=== PATIENT | female | born 1985 | race Hispanic/Latino ===

== ENCOUNTER 2019-11-05 10:27 | Emergency (ER) | payer BC ==
--- OUTSIDE RECORDS SUMMARY | 2019-11-05 10:29 | XMS REPORT ---
:1985 [facility] Address [address] [place] [address] Dr. Leblanc [address] [place] [id number] Care Team Providers Name Role Phone Unavailable Unavailable Unavailable Problems This patient has no known problems. Allergies, Adverse Reactions, Alerts This patient has no known allergies or adverse reactions. Medications This patient has no known medications.
[2019-11-05] MEDS ORDERED: MORPHINE 2 MG/ML SYR ONE (11:25)
[2019-11-05] MEDS ORDERED: NA CHLORIDE 0.9% 1,000 ML ONE (11:25)
[2019-11-05] MEDS ORDERED: ONDANSETRON 4 MG/2 ML VIAL ONE (11:25)
[2019-11-05] MEDS ORDERED: FAMOTIDINE 20 MG/2 ML VIAL IV ONE (11:25)
[2019-11-05 11:49] LABS: Absolute Lymphocytes (CBC) 1.6 K/uL (0.7-4.9); Basophils % 0.4 % (0-1.3); Hematocrit 38.8 % (36.0-45.0); Lymphocytes % 30.9 % (15.3-44.8); MPV 9.5 fL (7.6-11.3); RBC Red Blood Cell Count 4.78 M/uL (3.86-4.86)
[2019-11-05 11:51] LABS: Protime INR 1.03
[2019-11-05 12:07] LABS: ALT/SGPT 29 U/L (12-78); AST/SGOT 14 U/L (15-37); Albumin 3.4 g/dL (3.4-5.0); Alkaline Phosphatase 114 U/L (45-117); BUN Blood Urea Nitrogen 14 mg/dL (7-18); Bicarbonate 27 mmol/L (21-32); Bilirubin Direct 0.2 mg/dL (0-0.2); Bilirubin Total 0.5 mg/dL (0.2-1.0); Glucose Level 92 mg/dL (74-106); Lipase 65 U/L (73-393); NT PRO-BNP 25 pg/mL (<125); Potassium 4.2 mmol/L (3.5-5.1); Sodium Level 140 mmol/L (136-145); Troponin (Emerg Dept Use Only) < 0.02 ng/mL (0.0-0.045)
--- NOTE | 2019-11-05 12:08 | RAD REPORT ---
EXAM DESCRIPTION: RAD - Chest Single View - 11/05/2019 12:03 pm CLINICAL HISTORY: Cough;Chest pain Chest pain. COMPARISON: No comparisons FINDINGS: Portable technique limits examination quality. The lungs are grossly clear. The heart is upper limit of normal in size. No displaced fractures. IMPRESSION: No acute intrathoracic process suspected.
--- NOTE | 2019-11-05 12:25 | RAD REPORT ---
EXAM DESCRIPTION: US - Extrem Venous W Compress Marc - 11/05/2019 12:20 pm CLINICAL HISTORY: PAIN Bilateral leg edema and swelling. COMPARISON: <Comparisons> TECHNIQUE: Real-time sonographic interrogation of the left and right lower extremity deep venous sys tems was performed. FINDINGS: Normal compressibility, flow augmentation, phasic flow and spontaneous flow is identified in both the left and right lower extremity deep venous systems. IMPRESSION: No sonographic evidence of left or right lower extremity deep venous thrombosis.
[2019-11-05 12:39] LABS: Urine Blood NEGATIVE (NEG); Urine Glucose NEGATIVE (NEG); Urine Protein NEGATIVE (NEG); Urine pH 8.5 (5.0-7.0)
[2019-11-05] MEDS ORDERED: ASPIRIN 81 MG CHEWABLE TABLET ONE (12:49)
--- NOTE | 2019-11-05 12:53 | RAD REPORT ---
EXAM DESCRIPTION: CT - Angio Aorta For Dissection - 11/05/2019 12:44 pm CLINICAL HISTORY: Chest pain radiating to the back. Chest pain;Pain;PE COMPARISON: <Comparisons> TECHNIQUE: CT angiography of the aorta was performed with MIPs. All CT scans are performed using dose optimization technique as appropriate and may include automated exposure control or mA/KV adjustment according to patient size. FINDINGS: A left aortic arch is present with normal branching pattern of the great vessels.No acute aortic finding is seen such as aneurysm, penetrating ulcer or dissection. The celiac axis, SMA, MARIAM and renal arteries are widely patent. No evidence of pulmonary embolism. The lungs are clear. The liver demonstrates no focal mass or biliary dilatation.The spleen, pancreas, adrenal glands and k idneys are within normal limits for arterial phase imaging. No bowel obstruction, free fluid or abscess.No pathologic enlarged lymphadenopathy identified. No fracture or worrisome bone lesion seen. IUD noted in the uterus. IMPRESSION: No acute aortic finding is demonstrated.
--- NOTE | 2019-11-05 13:02 | EDPHYS ---
Physician Documentation [facility] Name: Elizabeth Severino Age: 33 yrs Sex: Female : 1985 Arrival Date: 11/05/2019 Time: 10:27 Bed 7 Private MD: NICO Physician Saravanan Doran HPI: 11/05 11:15 This 33 yrs old Female presents to ER via Ambulatory with complaints of Chest luisa Pain. 11:15 The patient or guardian reports chest pain that is located primarily in the substernal luisa area, anterior chest wall, bilaterally. The pain radiates to back. Associated signs and symptoms: Pertinent positives: shortness of breath. The chest pain is described as a pressure, sharp. Duration: The patient or guardian reports a single episode, that is still ongoing. Modifying factors: The symptoms are alleviated by nothing. the symptoms are aggravated by nothing. Severity of pain: At its worst the pain was moderate. The patient has not experienced similar symptoms in the past. 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 - Social history:: Smoking status: Patient/guardian denies using tobacco. - Ebola Screening: : No symptoms or risks identified at this time. - Family history:: not pertinent. ROS: 11:15 Constitutional: Negative for fever, chills, and weight loss, Eyes: Negative for injury, luisa pain, redness, and discharge, ENT: Negative for injury, pain, and discharge, Neck: Negative for injury, pain, and swelling, Abdomen/GI: Negative for abdominal pain, nausea, vomiting, diarrhea, and constipation, Back: Negative for injury and pain, : Negative for injury, bleeding, discharge, and swelling, Skin: Negative for injury, rash, and discoloration, Neuro: Negative for headache, weakness, numbness, tingling, and seizure, Psych: Negative for depression, anxiety, suicide ideation, homicidal ideation, and hallucinations, Allergy/Immunology: Negative for hives, rash, and allergies, Endocrine: Negative for neck swelling, polydipsia, polyuria, polyphagia, and marked weight changes, Hematologic/Lymphatic: Negative for swollen nodes, abnormal bleeding, and unusual bruising. 11:15 Cardiovascular: Positive for chest pain. 11:15 Respiratory: Positive for cough, shortness of breath. 11:15 Back: Positive for pain at rest. Exam: 11:15 Constitutional: This is a well developed, well nourished patient who is awake, alert, luisa and in no acute distress. Head/Face: Normocephalic, atraumatic. Eyes: Pupils equal round and reactive to light, extra-ocular motions intact. Lids and lashes normal. Conjunctiva and sclera are non-icteric and not injected. Cornea within normal limits. Periorbital areas with no swelling, redness, or edema. ENT: Nares patent. No nasal discharge, no septal abnormalities noted. Tympanic membranes are normal and external auditory canals are clear. Oropharynx with no redness, swelling, or masses, exudates, or evidence of obstruction, uvula midline. Mucous membranes moist. Neck: Trachea midline, no thyromegaly or masses palpated, and no cervical lymphadenopathy. Supple, full range of motion without nuchal rigidity, or vertebral point tenderness. No Meningismus. Chest/axilla: Normal chest wall appearance and motion. Nontender with no deformity. No lesions are appreciated. Cardiovascular: Regular rate and rhythm with a normal S1 and S2. No gallops, murmurs, or rubs. Normal PMI, no JVD. No pulse deficits. Respiratory: Lungs have equal breath sounds bilaterally, clear to auscultation and percussion. No rales, rhonchi or wheezes noted. No increased work of breathing, no retractions or nasal flaring. Abdomen/GI: Soft, non-tender, with normal bowel sounds. No distension or tympany. No guarding or rebound. No evidence of tenderness throughout. Back: No spinal tenderness. No costovertebral tenderness. Full range of motion. Skin: Warm, dry with normal turgor. Normal color with no rashes, no lesions, and no evidence of cellulitis. MS/ Extremity: Pulses equal, no cyanosis. Neurovascular intact. Full, normal range of motion. Neuro: Awake and alert, GCS 15, oriented to person, place, time, and situation. Cranial nerves II-XII grossly intact. Motor strength 5/5 in all extremities. Sensory grossly intact. Cerebellar exam normal. Normal gait. Psych: Awake, alert, with orientation to person, place and time. Behavior, mood, and affect are within normal limits. 11:15 Musculoskeletal/extremity: DVT Exam: No signs of deep vein thrombosis. no pain, no swelling, no tenderness, negative Homans' sign noted on exam, no appreciated bluish discoloration, no erythema, no increased warmth. 11:46 Abdomen/GI: Inspection: abdomen appears normal, Bowel sounds: normal, Palpation: [facility] abdomen is soft and non-tender, Liver: no appreciated palpable abnormalities, Hernia: not appreciated. Vital Signs: 10:36 BP 127 / 83; Pulse 92; Resp 18; Pulse Ox 99% on R/A; Weight 99.79 kg; Height 5 ft. 2 sv in. (157.48 cm); Pain 7/10; 11:38 BP 110 / 66; Pulse 65; Resp 10; Pulse Ox 100% ; bp 12:53 BP 122 / 55; Pulse 73; Resp 18; Pulse Ox 100% ; bp 13:57 BP 109 / 90; Pulse 97; Resp 24; Temp 98; Pulse Ox 99% ; bp 10:36 Body Mass Index 40.24 (99.79 kg, 157.48 cm) sv MDM: 10:30 Patient medically screened. [facility] 11:17 Data reviewed: vital signs, nurses notes, lab test result(s), EKG, radiologic studies, [facility] CT scan, plain films. 11/05 11:15 Order name: Basic Metabolic Panel; Complete Time: 12:27 [facility] 11/05 11:15 Order name: CBC with Diff; Complete Time: 12:27 [facility] 11/05 11:15 Order name: LFT's; Complete Time: 12:27 [facility] 11/05 11:15 Order name: Magnesium; Complete Time: 12:27 [facility] 11/05 11:15 Order name: NT PRO-BNP; Complete Time: 12:27 [facility] 11/05 11:15 Order name: PT-INR; Complete Time: 12:27 [facility] 11/05 11:15 Order name: Troponin (emerg Dept Use Only); Complete Time: 12:27 [facility] 11/05 11:15 Order name: XRAY Chest (1 view); Complete Time: 12:27 [facility] 11/05 11:15 Order name: Lipase; Complete Time: 12:27 [facility] 11/05 11:15 Order name: US Extremity Venous W Compression Marc; Complete Time: 12:27 [facility] 11/05 11:15 Order name: CT Aorta for Dissection; Complete Time: 13:01 [facility] 11/05 12:34 Order name: Urine Dipstick--Ancillary (enter results); Complete Time: 12:54 ms 11/05 12:34 Order name: Urine --Ancillary (enter results); Complete Time: 12:54 ms 11/05 11:15 Order name: EKG; Complete Time: 11:16 [facility] 11/05 11:15 Order name: Cardiac monitoring; Complete Time: 11:17 [facility] 11/05 11:15 Order name: EKG - Nurse/Tech; Complete Time: 11:17 [facility] 11/05 11:15 Order name: IV Saline Lock; Complete Time: 11:37 [facility] 11/05 11:15 Order name: Labs collected and sent; Complete Time: 11:37 [facility] 11/05 11:15 Order name: O2 Per Protocol; Complete Time: 11:17 [facility] 11/05 11:15 Order name: O2 Sat Monitoring; Complete Time: 11:17 [facility] 11/05 11:15 Order name: Urine Dipstick-Ancillary (obtain specimen); Complete Time: 12:31 [facility] 11/05 11:15 Order name: Urine Test (obtain specimen); Complete Time: 12:32 [facility] Administered Medications: 11:30 Drug: NS 0.9% 1000 ml Route: IV; Rate: 1 bolus; Site: right forearm; bp 13:58 Follow up: IV Status: Completed infusion; IV Intake: 1000ml bp 11:30 Drug: Pepcid 20 mg Route: IVP; Site: right forearm; bp 12:32 Follow up: Response: Nausea is decreased bp 11:30 Drug: morphine 2 mg Route: IVP; Site: right forearm; bp 12:32 Follow up: Response: Pain is decreased bp 11:30 Drug: Zofran 4 mg Route: IVP; Site: right forearm; bp 12:32 Follow up: Response: Nausea is decreased bp 12:54 Drug: Aspirin Chewable Tablet 162 mg Route: PO; bp 12:54 Follow up: Response: No adverse reaction bp Disposition: 11/05/19 13:01 Discharged to Home. Impression: Chest pain, unspecified. - Condition is Stable. - Discharge Instructions: Nonspecific Chest Pain, Nonspecific Chest Pain, [id number], Aspirin and Your Heart. - Prescriptions for Pepcid 20 mg Oral Tablet - take 1 tablet by ORAL route every 12 hours for 10 days; 20 tablet. - Medication Reconciliation Form, Thank You Letter, Antibiotic Education, Prescription Opioid Use form. - Follow up: Private Physician; When: 2 - 3 days; Reason: Recheck today's complaints, Continuance of care, Re-evaluation by your physician. - Problem is new. - Symptoms have improved. Signatures: Dispatcher [employer] Sara Vazquez, MARY RN Saravanan Bhakta MD MD cha Peltier, Brian, RN RN bp Corrections: (The following items were deleted from the chart) 14:02 13:01 11/05/2019 13:01 Discharged to Home. Impression: Chest pain, unspecified. bp Condition is Stable. Discharge Instructions: Nonspecific Chest Pain, Nonspecific Chest Pain, [id number], Aspirin and Your Heart. Prescriptions for Pepcid 20 mg Oral Tablet - take 1 tablet by ORAL route every 12 hours for 10 days; 20 tablet. and Forms are Medication Reconciliation Form, Thank You Letter, Antibiotic Education, Prescription Opioid Use. Follow up: Private Physician; When: 2 - 3 days; Reason: Recheck today's complaints, Continuance of care, Re-evaluation by your physician. Problem is new. Symptoms have improved. luisa
--- NOTE | 2019-11-05 13:02 | ER ---
Nurse's Notes [facility] Name: Elizabeth Severino Age: 33 yrs Sex: Female : 1985 Arrival Date: 11/05/2019 Time: 10:27 Bed 7 Private MD: Diagnosis: Chest pain, unspecified Presentation: 11/05 10:29 Presenting complaint: Patient states: midsternal chest pressure/tightness that radiates sv to between shoulder blades started this morning, also reports she had some left posterior knee pain a couple of days ago but has since subsided. Denies SOB/n/v. Transition of care: patient was not received from another setting of care. Onset of symptoms was November 05, 2019. Risk Assessment: Do you want to hurt yourself or someone else? Patient reports no desire to harm self or others. Care prior to arrival: None. 10:29 Method Of Arrival: Ambulatory sv 10:29 Acuity: ARSALAN 3 sv 13:58 Initial Sepsis Screen: Does the patient meet any 2 criteria? No. Patient's initial bp sepsis screen is negative. Does the patient have a suspected source of infection? No. Patient's initial sepsis screen is negative. Triage Assessment: 10:30 General: Appears in no apparent distress. comfortable, Behavior is cooperative, bp appropriate for age, anxious. Pain: Complains of pain in chest. EENT: No deficits noted. Neuro: No deficits noted. Cardiovascular: Rhythm is sinus rhythm. Respiratory: No deficits noted. GI: No signs and/or symptoms were reported involving the gastrointestinal system. : No signs and/or symptoms were reported regarding the genitourinary system. Derm: No deficits noted. Musculoskeletal: No deficits noted. 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 - Social history:: Smoking status: Patient/guardian denies using tobacco. - Ebola Screening: : No symptoms or risks identified at this time. - Family history:: not pertinent. Screenin:51 Abuse screen: Denies threats or abuse. Denies injuries from another. Nutritional bp screening: No deficits noted. Tuberculosis screening: No symptoms or risk factors identified. Fall Risk None identified. Assessment: 10:30 General: SEE TRIAGE NOTE. bp 11:38 Reassessment: IVF INFUSING, RADIOLOGY STUDIES PENDING. bp 12:53 Reassessment: PT RETURNED FROM RADIOLOGY. bp 13:57 Reassessment: PT D/C HOME AMBULATORY WITH FAMILY, DX WITH NONSPECIFIC CHEST PAIN. bp Vital Signs: 10:36 BP 127 / 83; Pulse 92; Resp 18; Pulse Ox 99% on R/A; Weight 99.79 kg; Height 5 ft. 2 sv in. (157.48 cm); Pain 7/10; 11:38 BP 110 / 66; Pulse 65; Resp 10; Pulse Ox 100% ; bp 12:53 BP 122 / 55; Pulse 73; Resp 18; Pulse Ox 100% ; bp 13:57 BP 109 / 90; Pulse 97; Resp 24; Temp 98; Pulse Ox 99% ; bp 10:36 Body Mass Index 40.24 (99.79 kg, 157.48 cm) sv ED Course: 10:27 Patient arrived in ED. as 10:29 Arm band placed on Patient placed in an exam room, on a stretcher. sv 10:30 Saravanan Doran MD is Attending Physician. luisa 10:30 Gray Ulloa, MARY is Primary Nurse. bp 10:35 Triage completed. sv 10:51 Patient has correct armband on for positive identification. Bed in low position. Call bp light in reach. Side rails up X2. campus monitor on. Pulse ox on. NIBP on. 11:20 Radiology exam delayed due to lab results not completed at this time. (BUN/Creatinine) mw3 test not completed at this time. 11:21 EKG done, by ED staff, reviewed by Saravanan Doran MD. em1 11:30 Inserted saline lock: 20 gauge in right forearm, using aseptic technique. Blood bp collected. Patient maintains SpO2 saturation greater than 95% on room air. 11:47 Radiology exam delayed due to test not completed at this time. mw3 12:03 XRAY Chest (1 view) In Process Unspecified. EDMS 12:21 US Extremity Venous W Compression Marc In Process Unspecified. EDMS 12:41 CT completed. Patient tolerated procedure well. Patient moved back from CT. bq 12:44 CT Aorta for Dissection In Process Unspecified. EDMS 13:58 No provider procedures requiring assistance completed. IV discontinued, intact, bp bleeding controlled, No redness/swelling at site. Pressure dressing applied. Administered Medications: 11:30 Drug: NS 0.9% 1000 ml Route: IV; Rate: 1 bolus; Site: right forearm; bp 13:58 Follow up: IV Status: Completed infusion; IV Intake: 1000ml bp 11:30 Drug: Pepcid 20 mg Route: IVP; Site: right forearm; bp 12:32 Follow up: Response: Nausea is decreased bp 11:30 Drug: morphine 2 mg Route: IVP; Site: right forearm; bp 12:32 Follow up: Response: Pain is decreased bp 11:30 Drug: Zofran 4 mg Route: IVP; Site: right forearm; bp 12:32 Follow up: Response: Nausea is decreased bp 12:54 Drug: Aspirin Chewable Tablet 162 mg Route: PO; bp 12:54 Follow up: Response: No adverse reaction bp Intake: 13:58 IV: 1000ml; Total: 1000ml. bp Outcome: 13:01 Discharge ordered by . luisa 13:58 Discharged to home ambulatory, with family. bp 13:58 Condition: stable 13:58 Discharge instructions given to patient, Instructed on discharge instructions, follow up and referral plans. medication usage, Demonstrated understanding of instructions, follow-up care, medications, Prescriptions given X 1. 14:02 Patient left the ED. bp Signatures: Dispatcher [employer] Sara Vazquez, Saravanan Gomez RN, MD MD cha Quilty, Betty bq Martinez, Luis Fernando Hardy em1 Gray Ulloa RN RN Kristen Lucia mw3
[2019-11-05 14:11] VITALS: BP 109/90; TEMP 98; O2SAT 99
--- NOTE | 2019-11-05 18:47 | EKG ---
Test Date: 2019-11-05 Test Time: 11:19:21 Medical Staff Coordinator: KAYLA MEASUREMENT RESULTS: Intervals: Rate: 67 WI: 166 QRSD: 84 QT: 422 QTc: 445 [place]: P: 54 WI: 166 QRS: 64 T: 47 INTERPRETIVE STATEMENTS: Normal sinus rhythm with sinus arrhythmia Normal ECG No previous ECG available for comparison Electronically Signed On 11-05-19 18:47:06 FISHING ROD MARKER by Deshawn Medeiros
== END 2019-11-05 14:02 | disposition home or self-care (01) ==
LOC: ER 10:27
DX: R07.9 Chest pain, unspecified (principal); Z88.0 Allergy status to penicillin
CPT/HCPCS: 96361; 93005; 85025; 80048; 36415; 83735; 81025; 85610; 80076; 81003; 84484; 83690; 83880; 71275; 74175; 71045; 93970; 96375; 96374; 99285; Q9967; J2270; J7030; J2405

== ENCOUNTER 2020-03-04 20:28 | Emergency (ER) | payer BC ==
--- OUTSIDE RECORDS SUMMARY | 2020-03-04 20:30 | XMS REPORT ---
:1985 Author Organization [facility] t Address [address] [place] [address] Dr. Leblanc [address] [place] [id number] Care Team Providers Name Role Phone Unavailable Unavailable Unavailable Problems This patient has no known problems. Allergies, Adverse Reactions, Alerts This patient has no known allergies or adverse reactions. Medications This patient has no known medications.
[2020-03-04 20:58] LABS: Urine Blood 1+ (NEG); Urine Glucose NEGATIVE (NEG); Urine Protein NEGATIVE (NEG)
[2020-03-04 21:04] LABS: Absolute Lymphocytes (CBC) 2.6 K/uL (0.7-4.9); Basophils % 0.4 % (0-1.3); Lymphocytes % 38.1 % (15.3-44.8); MPV 9.4 fL (7.6-11.3); RBC Red Blood Cell Count 4.55 M/uL (3.86-4.86)
[2020-03-04] MEDS ORDERED: NA CHLORIDE 0.9% 1,000 ML ONE (21:04)
[2020-03-04] MEDS ORDERED: MORPHINE 4 MG/ML SYR ONE (21:04)
[2020-03-04] MEDS ORDERED: ONDANSETRON 4 MG/2 ML VIAL ONE (21:04)
[2020-03-04 21:19] LABS: ALT/SGPT 22 U/L (12-78); AST/SGOT 13 U/L (15-37); Albumin 3.5 g/dL (3.4-5.0); BUN Blood Urea Nitrogen 18 mg/dL (7-18); Bicarbonate 26 mmol/L (21-32); Bilirubin Direct < 0.1 mg/dL (0-0.2); Bilirubin Total 0.1 mg/dL (0.2-1.0); Glucose Level 100 mg/dL (74-106); Lipase 119 U/L (73-393); Potassium 3.8 mmol/L (3.5-5.1); Protein, Total 7.2 g/dL (6.4-8.2); Sodium Level 141 mmol/L (136-145)
[2020-03-04 21:20] LABS: Alkaline Phosphatase 111 U/L (45-117)
--- NOTE | 2020-03-04 21:59 | RAD REPORT ---
EXAM DESCRIPTION: CT - Abdomen Pelvis W Contrast - 03/04/2020 9:48 pm CLINICAL HISTORY: Abdominal pain COMPARISON: 2019 TECHNIQUE: Computed axial tomography of the abdomen pelvis was obtained. 100 cc Isovue-300 was admin istered intravenously. Oral contrast was not requested which limits evaluation of bowel. All CT scans are performed using dose optimization technique as appropriate and may include automated exposure control or mA/KV adjustment according to patient size. FINDINGS: The liver, spleen, pancreas, adrenal and kidneys appear unremarkable. There is no evidence of diverticulitis. Normal appendix IUD within the uterus The gallbladder wall appears borderline thickened IMPRESSION: Borderline gallbladder wall thickening. If clinically indicated further evaluation with ultrasound could be obtained
--- NOTE | 2020-03-04 22:20 | EDPHYS ---
Physician Documentation [facility] Name: Elizabeth Severino Age: 34 yrs Sex: Female : 1985 Arrival Date: 03/04/2020 Time: 20:30 Bed 24 Private MD: ED Physician Anurag Brower HPI: 03/04 20:54 This 34 yrs old Female presents to ER via Ambulatory with complaints of pkl Abdominal Pain. 20:54 The patient presents with abdominal pain in the right upper quadrant. Onset: The pkl symptoms/episode began/occurred yesterday. The symptoms do not radiate. Associated signs and symptoms: Pertinent positives: nausea. 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 - Social history:: Smoking status: Patient denies any tobacco usage or history of. ROS: 20:54 Eyes: Negative for injury, pain, redness, and discharge, ENT: Negative for injury, pkl pain, and discharge, Neck: Negative for injury, pain, and swelling, Cardiovascular: Negative for chest pain, palpitations, and edema, Respiratory: Negative for shortness of breath, cough, wheezing, and pleuritic chest pain. 20:54 Abdomen/GI: Positive for abdominal pain, nausea, of the right upper quadrant. 20:54 Back: Negative for acute changes. 20:54 : Negative for urinary symptoms. 20:54 MS/extremity: Negative for acute changes. 20:54 Skin: Negative for rash. 20:54 Neuro: Negative for altered mental status. Exam: 20:54 Head/Face: Normocephalic, atraumatic. Eyes: Pupils equal round and reactive to light, pkl extra-ocular motions intact. Lids and lashes normal. Conjunctiva and sclera are non-icteric and not injected. Cornea within normal limits. Periorbital areas with no swelling, redness, or edema. ENT: Nares patent. No nasal discharge, no septal abnormalities noted. Tympanic membranes are normal and external auditory canals are clear. Oropharynx with no redness, swelling, or masses, exudates, or evidence of obstruction, uvula midline. Mucous membranes moist. Neck: Trachea midline, no thyromegaly or masses palpated, and no cervical lymphadenopathy. Supple, full range of motion without nuchal rigidity, or vertebral point tenderness. No Meningismus. Chest/axilla: Normal chest wall appearance and motion. Nontender with no deformity. No lesions are appreciated. Cardiovascular: Regular rate and rhythm with a normal S1 and S2. No gallops, murmurs, or rubs. Normal PMI, no JVD. No pulse deficits. Respiratory: Lungs have equal breath sounds bilaterally, clear to auscultation and percussion. No rales, rhonchi or wheezes noted. No increased work of breathing, no retractions or nasal flaring. 20:54 Abdomen/GI: Bowel sounds: normal, Palpation: soft, mild abdominal tenderness, in the right upper quadrant. 20:54 Back: Exam negative for acute changes. 20:54 : Exam negative for acute changes. 20:54 Musculoskeletal/extremity: Exam is negative for acute changes. 20:54 Skin: Exam negative for rash. 20:54 Neuro: Orientation: is normal, Mentation: is normal, Cranial nerves: grossly normal, Motor: is normal. Vital Signs: 20:39 BP 132 / 68; Pulse 77; Resp 18; Temp 97.8; Pulse Ox 99% on R/A; Weight 103.42 kg; vc Height 5 ft. 2 in. (157.48 cm); Pain 6/10; 21:30 BP 96 / 58; Pulse 60; Resp 14; Pulse Ox 100% on R/A; vc 22:20 BP 91 / 55; Pulse 54; Resp 15; Pulse Ox 100% on R/A; vc 20:39 Body Mass Index 41.70 (103.42 kg, 157.48 cm) vc MDM: 20:32 Patient medically screened. pkl 22:15 Data reviewed: vital signs, nurses notes, lab test result(s), radiologic studies, CT pkl scan. ED course: Patient feeling better. Discussed lab. and CT Scan results with patient. Advised to follow up with PCP next week for US evaluation of gallbladder if symptoms persist. Patient understood instructions. 03/04 20:48 Order name: Urine Dipstick--Ancillary (enter results); Complete Time: 21:29 [facility] 03/04 20:48 Order name: Urine --Ancillary (enter results); Complete Time: 21:29 dh4 03/04 20:52 Order name: Basic Metabolic Panel; Complete Time: 21:29 pkl 03/04 20:52 Order name: CBC with Diff; Complete Time: 21: pkl 03/04 20:52 Order name: Creatinine for Radiology; Complete Time: 21:29 pkl 03/04 20:52 Order name: Hepatic Function; Complete Time: : pkl 03/04 20:52 Order name: Lipase; Complete Time: 21: pkl 03/04 20:52 Order name: IV Saline Lock; Complete Time: 21:16 pkl 03/04 20:52 Order name: Labs collected and sent; Complete Time: : pkl 03/04 20:52 Order name: CT Abd/Pelvis - IV Contrast Only; Complete Time: 22:11 pkl Administered Medications: 21:08 Drug: morphine 4 mg Route: IVP; Site: right antecubital; vc 21:58 Follow up: Response: Pain is decreased vc 21:08 Drug: Zofran (Ondansetron) 4 mg Route: IVP; Site: right antecubital; vc 21:58 Follow up: Response: No adverse reaction; Nausea is decreased vc 21:10 Drug: NS 0.9% 1000 ml Route: IV; Rate: 1000 ml; Site: right antecubital; vc Disposition: 03/04/20 22:19 Discharged to Home. Impression: Right upper quadrant pain. - Condition is Stable. - Medication Reconciliation Form, Thank You Letter, Antibiotic Education, Prescription Opioid Use form. - Follow up: Private Physician; When: 2 - 3 days; Reason: Re-evaluation by your physician. - Problem is new. - Symptoms have improved. Signatures: Dispatcher [employer] EDMS Anurag Brower MD MD Hillary Guerra [facility] Sapphire Jerez RN RN vc Corrections: (The following items were deleted from the chart) 22:52 22:19 03/04/2020 22:19 Discharged to Home. Impression: Right upper quadrant pain. lt1 Condition is Stable. Forms are Medication Reconciliation Form, Thank You Letter, Antibiotic Education, Prescription Opioid Use. Follow up: Private Physician; When: 2 - 3 days; Reason: Re-evaluation by your physician. Problem is new. Symptoms have improved. pkl
--- NOTE | 2020-03-04 22:20 | ER ---
Nurse's Notes [facility] Name: Elizabeth Severino Age: 34 yrs Sex: Female : 1985 Arrival Date: 03/04/2020 Time: 20:30 Bed 24 Private MD: Diagnosis: Right upper quadrant pain Presentation: 03/04 20:39 Chief complaint: Patient states: "I woke up yesterday feeling nauseous then today I vc woke up feeling dizzy with this pain in my stomach. Coronavirus screen: Proceed with normal triage. Ebola Screen: No symptoms or risks identified at this time. Initial Sepsis Screen: Does the patient meet any 2 criteria? No. Patient's initial sepsis screen is negative. Does the patient have a suspected source of infection? No. Patient's initial sepsis screen is negative. Risk Assessment: Do you want to hurt yourself or someone else? Patient reports no desire to harm self or others. Onset of symptoms was March 03, 2020. 20:39 Method Of Arrival: Ambulatory vc 20:39 Acuity: ARSALAN 3 vc Triage Assessment: 20:45 General: Appears in no apparent distress. uncomfortable, Behavior is calm, cooperative, vc appropriate for age. Pain: Complains of pain in right upper quadrant. GI: Abdomen is round non-distended. 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 - Social history:: Smoking status: Patient denies any tobacco usage or history of. Screenin:45 Abuse screen: Denies threats or abuse. Nutritional screening: No deficits noted. vc Tuberculosis screening: No symptoms or risk factors identified. Fall Risk None identified. Assessment: 20:39 Reassessment: See triage for assessment. vc 22:01 GI: Bowel sounds present X 4 quads. Abd is soft Abdomen is tender to palpation. vc 22:45 Reassessment: Patient appears in no apparent distress at this time. Patient and/or vc family updated on plan of care and expected duration. Pain level reassessed. Patient is alert, oriented x 3, equal unlabored respirations, skin warm/dry/pink. Patient denies pain at this time. Patient states feeling better. Patient states symptoms have improved. Vital Signs: 20:39 BP 132 / 68; Pulse 77; Resp 18; Temp 97.8; Pulse Ox 99% on R/A; Weight 103.42 kg; vc Height 5 ft. 2 in. (157.48 cm); Pain 6/10; 21:30 BP 96 / 58; Pulse 60; Resp 14; Pulse Ox 100% on R/A; vc 22:20 BP 91 / 55; Pulse 54; Resp 15; Pulse Ox 100% on R/A; vc 20:39 Body Mass Index 41.70 (103.42 kg, 157.48 cm) vc ED Course: 20:30 Patient arrived in ED. cf2 20:30 Sapphire Jerez, MARY is Primary Nurse. vc 20:30 Arm band placed on. vc 20:30 Patient has correct armband on for positive identification. Bed in low position. vc hospital monitor on. Pulse ox on. 20:32 Anurag Brower MD is Attending Physician. pkl 20:42 Triage completed. vc 20:49 Inserted saline lock: 18 gauge in right antecubital area, using aseptic technique. rv Blood collected. 20:55 Radiology exam delayed due to lab results not completed at this time. (BUN/Creatinine). md1 21:48 CT Abd/Pelvis - IV Contrast Only In Process Unspecified. EDMS 22:24 No provider procedures requiring assistance completed. IV discontinued, intact, vc bleeding controlled, No redness/swelling at site. Pressure dressing applied. Administered Medications: 21:08 Drug: morphine 4 mg Route: IVP; Site: right antecubital; vc 21:58 Follow up: Response: Pain is decreased vc 21:08 Drug: Zofran (Ondansetron) 4 mg Route: IVP; Site: right antecubital; vc 21:58 Follow up: Response: No adverse reaction; Nausea is decreased vc 21:10 Drug: NS 0.9% 1000 ml Route: IV; Rate: 1000 ml; Site: right antecubital; vc Outcome: 22:19 Discharge ordered by . pkterrie 22:52 Patient left the ED. lt1 23:41 Condition: good vc Signatures: Dispatcher [employer] EDMS Anurag Brower MD MD pkJesus Morales RN RN Hillary Andersen lt1 Elizabeth Benjamin cf2 Joan Ferreira md1 Sapphire Jerez RN RN vc Corrections: (The following items were deleted from the chart) 23:40 22:45 Reassessment: Patient appears in no apparent distress at this time. No changes vc from previously documented assessment. Patient states feeling better. Patient states symptoms have improved. vc
[2020-03-04 23:03] VITALS: BP 132/68; TEMP 97.8; O2SAT 99
== END 2020-03-04 22:52 | disposition home or self-care (01) ==
LOC: ER 20:28
DX: R10.11 Right upper quadrant pain (principal); Z97.5 Presence of (intrauterine) contraceptive device; K82.8 Other specified diseases of gallbladder
CPT/HCPCS: 85025; 80048; 36415; 81025; 80076; 81003; 83690; 74177; 96375; 96374; 99284; Q9967; J7030; J2405

== ENCOUNTER 2020-11-06 17:33 | Emergency (ER) | payer BC, SELFPAY ==
--- OUTSIDE RECORDS SUMMARY | 2020-11-06 17:35 | XMS REPORT | Continuity of Care Document ---
:1985 Author Organization [facility] t Address [address] [place] [address] Dr. Leblanc [address] [place] [id number] Care Team Providers Name Role Phone Unavailable Unavailable Unavailable Problems This patient has no known problems. Allergies, Adverse Reactions, Alerts This patient has no known allergies or adverse reactions. Medications This patient has no known medications. Procedures This patient has no known procedures. Results This patient has no known results.
[2020-11-06 19:08] LABS: Basophils % 0.3 % (0-1.3); Hematocrit 36.8 % (36.0-45.0); Lymphocytes % 14.8 % (15.3-44.8); MPV 9.1 fL (7.6-11.3); RBC Red Blood Cell Count 4.66 M/uL (3.86-4.86)
[2020-11-06 19:26] LABS: ALT/SGPT 44 U/L (12-78); AST/SGOT 24 U/L (15-37); Albumin 3.6 g/dL (3.4-5.0); Alkaline Phosphatase 118 U/L (45-117); BUN Blood Urea Nitrogen 13 mg/dL (7-18); Bicarbonate 27 mmol/L (21-32); Bilirubin Direct < 0.1 mg/dL (0-0.2); Bilirubin Total 0.2 mg/dL (0.2-1.0); Glucose Level 149 mg/dL (74-106); Lipase 88 U/L (73-393); Potassium 3.9 mmol/L (3.5-5.1); Protein, Total 7.4 g/dL (6.4-8.2); Sodium Level 139 mmol/L (136-145)
--- NOTE | 2020-11-06 19:45 | RAD REPORT ---
EXAM DESCRIPTION: US - Abdomen Exam Limited - 11/06/2020 7:16 pm CLINICAL HISTORY: Abdominal pain. COMPARISON: None. FINDINGS: Multiple gallstones. Mild gallbladder wall thickening The biliary tree is normal caliber. IMPRESSION: Cholelithiasis. Mild gallbladder wall thickening may indicate cholecystitis
[2020-11-06] MEDS ORDERED: KETOROLAC 30 MG/ML INJ ONE (19:46)
--- NOTE | 2020-11-06 19:50 | ER ---
Nurse's Notes [facility] Name: Elizabeth Severino Age: 34 yrs Sex: Female : 1985 Arrival Date: 11/06/2020 Time: 17:35 Bed 18 Private MD: Diagnosis: Cholelithiasis Presentation: 11/06 17:39 Chief complaint: Patient states: RUQ pain started at 1300. Denies n/v/d. Coronavirus sv screen: Client denies travel out of the [place] in the last 14 days. Pt's child is COVID + today. Ebola Screen: No symptoms or risks identified at this time. Risk Assessment: Do you want to hurt yourself or someone else? Patient reports no desire to harm self or others. Onset of symptoms was November 06, 2020. 17:39 Method Of Arrival: Ambulatory sv 17:39 Acuity: ARSALAN 3 sv 17:42 Initial Sepsis Screen: Does the patient meet any 2 criteria? No. Patient's initial sv sepsis screen is negative. Does the patient have a suspected source of infection? No. Patient's initial sepsis screen is negative. Triage Assessment: 17:43 General: Appears in no apparent distress. uncomfortable, Behavior is calm, cooperative, sv appropriate for age. Pain: Complains of pain in right upper quadrant Pain currently is 8 out of 10 on a pain scale. Neuro: Level of Consciousness is awake, alert, obeys commands, Oriented to person, place, time, situation, Gait is steady. Respiratory: Respiratory effort is even, unlabored. 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 - Social history:: Smoking status: Patient denies any tobacco usage or history of. Screenin:40 Abuse screen: Denies threats or abuse. Nutritional screening: No deficits noted. em Tuberculosis screening: No symptoms or risk factors identified. Fall Risk None identified. Assessment: 18:40 General: Appears in no apparent distress. comfortable, Behavior is calm, cooperative, em appropriate for age, Denies fever, reports son tested positive for covid today, but she is completely asymptomatic . Pain: Complains of pain in right upper quadrant Pain currently is 9 out of 10 on a pain scale. Pain began 1 PM. Neuro: Level of Consciousness is awake, alert, obeys commands, Oriented to person, place, time, situation, Appropriate for age. Cardiovascular: Capillary refill < 3 seconds Patient's skin is warm and dry. Respiratory: Airway is patent Respiratory effort is even, unlabored, Respiratory pattern is regular, symmetrical. GI: Patient currently denies nausea, vomiting. Derm: Skin is intact, is healthy with good turgor, Skin is pink, warm \T\ dry. Musculoskeletal: Capillary refill < 3 seconds, Range of motion: intact in all extremities. 19:15 General: Appears in no apparent distress. Behavior is calm, cooperative, appropriate wh for age. Pain: Complains of pain in right upper quadrant. Neuro: Level of Consciousness is awake, alert, obeys commands, Oriented to person, place, time, situation, Appropriate for age. Cardiovascular: Capillary refill < 3 seconds. Respiratory: Airway is patent Respiratory effort is even, unlabored, Respiratory pattern is regular, symmetrical. GI: Abdomen is non-distended, Abd is soft Abdomen is tender to palpation in right upper quadrant. : No signs and/or symptoms were reported regarding the genitourinary system. EENT: No signs and/or symptoms were reported regarding the EENT system. Derm: Skin is intact, is healthy with good turgor, Skin is pink, warm \T\ dry. normal. Musculoskeletal: Circulation, motion, and sensation intact. 20:10 Reassessment: Patient appears in no apparent distress at this time. No changes from previously documented assessment. Patient and/or family updated on plan of care and expected duration. Pain level reassessed. Patient is alert, oriented x 3, equal unlabored respirations, skin warm/dry/pink. Patient states feeling better. Patient states symptoms have improved. Vital Signs: 17:42 BP 132 / 80; Pulse 82; Resp 20; Temp 97.3; Pulse Ox 99% ; Weight 11.34 kg; Height 5 ft. sv 2 in. (157.48 cm); Pain 8/10; 19:30 BP 123 / 60; Pulse 60; Resp 18; Pulse Ox 99% on R/A; wh 17:42 Body Mass Index 4.57 (11.34 kg, 157.48 cm) sv ED Course: 17:35 Patient arrived in ED. as 17:37 Andria Ramírez FNP-C [facility]. kb 17:37 Saravanan Doran MD is Attending Physician. kb 17:40 Triage completed. sv 17:41 Arm band placed on. sv 18:24 Ang Glass, RN is Primary Nurse. em 18:40 Patient has correct armband on for positive identification. Placed in gown. Bed in low em position. Call light in reach. Side rails up X2. Pulse ox on. NIBP on. 18:50 Initial lab(s) drawn, by me, sent to lab. Inserted saline lock: 20 gauge in right em antecubital area, using aseptic technique. Blood collected. 19:17 US Abdomen Limited In Process Unspecified. EDMS 20:10 No provider procedures requiring assistance completed. IV discontinued, intact, wh bleeding controlled, No redness/swelling at site. Administered Medications: 19:35 Drug: TORadol 30 mg Route: IVP; Site: right antecubital; 20:11 Follow up: Response: No adverse reaction; Pain is decreased Outcome: 19:50 Discharge ordered by MD. kb 20:10 Discharged to home ambulatory. wh 20:10 Condition: stable 20:10 Discharge instructions given to patient, Instructed on discharge instructions, follow up and referral plans. medication usage, POC Demonstrated understanding of instructions, follow-up care, medications, POC Prescriptions given X 2. 20:12 Patient left the ED. Signatures: Dispatcher [employer] EDDC Andria Ramírez FNP-C FNP-Ckb Verde, Stephanie, RN RN Ang Glass, MARY RN Ca Beebe Winsy Corrections: (The following items were deleted from the chart) 17:44 17:42 Resp 20bpm; Pulse Ox 99%; Temp 97.3F; 11.34 kg; Height 5 ft. 2 in.; BMI: 4.57; sv Pain 8/10; sv
--- NOTE | 2020-11-06 19:51 | EDPHYS ---
Physician Documentation [facility] Name: Elizabeth Severino Age: 34 yrs Sex: Female : 1985 Arrival Date: 11/06/2020 Time: 17:35 Bed 18 Private MD: ED Physician Saravanan Doran HPI: 11/06 19:03 This 34 yrs old Female presents to ER via Ambulatory with complaints of kb Abdominal Pain. 19:03 The patient presents with abdominal pain in the right upper quadrant. Onset: The kb symptoms/episode began/occurred today. The symptoms do not radiate. Associated signs and symptoms: none. The symptoms are described as constant. Modifying factors: The symptoms are alleviated by nothing, the symptoms are aggravated by nothing. Severity of pain: At its worst the pain was moderate in the emergency department the pain is unchanged. The patient has experienced similar episodes in the past, a few times. The patient has not recently seen a physician. 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 - Social history:: Smoking status: Patient denies any tobacco usage or history of. ROS: 19:03 Constitutional: Negative for fever, chills, and weight loss, Cardiovascular: Negative kb for chest pain, palpitations, and edema, Respiratory: Negative for shortness of breath, cough, wheezing, and pleuritic chest pain, Back: Negative for injury and pain, MS/Extremity: Negative for injury and deformity, Skin: Negative for injury, rash, and discoloration, Neuro: Negative for headache, weakness, numbness, tingling, and seizure. 19:03 Abdomen/GI: Positive for abdominal pain. Exam: 19:02 Constitutional: This is a well developed, well nourished patient who is awake, alert, kb and in no acute distress. Head/Face: Normocephalic, atraumatic. Chest/axilla: Normal chest wall appearance and motion. Nontender with no deformity. No lesions are appreciated. Cardiovascular: Regular rate and rhythm with a normal S1 and S2. No gallops, murmurs, or rubs. Normal PMI, no JVD. No pulse deficits. Respiratory: Lungs have equal breath sounds bilaterally, clear to auscultation and percussion. No rales, rhonchi or wheezes noted. No increased work of breathing, no retractions or nasal flaring. Back: No spinal tenderness. No costovertebral tenderness. Full range of motion. Skin: Warm, dry with normal turgor. Normal color with no rashes, no lesions, and no evidence of cellulitis. MS/ Extremity: Pulses equal, no cyanosis. Neurovascular intact. Full, normal range of motion. Neuro: Awake and alert, GCS 15, oriented to person, place, time, and situation. Cranial nerves II-XII grossly intact. Motor strength 5/5 in all extremities. Sensory grossly intact. Cerebellar exam normal. Normal gait. 19:02 Abdomen/GI: Inspection: abdomen appears normal, Bowel sounds: normal, in all quadrants, Palpation: soft, in all quadrants, mild abdominal tenderness, in the right upper quadrant. Vital Signs: 17:42 BP 132 / 80; Pulse 82; Resp 20; Temp 97.3; Pulse Ox 99% ; Weight 11.34 kg; Height 5 ft. sv 2 in. (157.48 cm); Pain 8/10; 19:30 BP 123 / 60; Pulse 60; Resp 18; Pulse Ox 99% on R/A; wh 17:42 Body Mass Index 4.57 (11.34 kg, 157.48 cm) sv MDM: 18:22 Patient medically screened. 19:02 Data reviewed: vital signs, nurses notes. Data interpreted: Pulse oximetry: on room air kb is 99 %. Interpretation: normal. 19:49 Data reviewed: I have discussed the patient's presentation/case with the attending Emergency Department Physician; and as a result, I will discharge patient. Counseling: I had a detailed discussion with the patient and/or guardian regarding: the historical points, exam findings, and any diagnostic results supporting the discharge/admit diagnosis, lab results, radiology results, the need for outpatient follow up, a general surgeon, to return to the emergency department if symptoms worsen or persist or if there are any questions or concerns that arise at home. 11/06 18:28 Order name: Basic Metabolic Panel; Complete Time: 19:28 11/06 18:28 Order name: CBC with Diff; Complete Time: 19:20 11/06 18:28 Order name: Hepatic Function; Complete Time: 19:28 kb 11/06 18:28 Order name: Lipase; Complete Time: 19:28 kb 11/06 18:28 Order name: US Abdomen Limited; Complete Time: 19:47 kb 11/06 18:28 Order name: IV Saline Lock; Complete Time: 18:54 kb 11/06 18:28 Order name: Labs collected and sent; Complete Time: 18:54 kb Administered Medications: 19:35 Drug: TORadol 30 mg Route: IVP; Site: right antecubital; 20:11 Follow up: Response: No adverse reaction; Pain is decreased Disposition: 11/07 11:54 Co-signature as Attending Physician, Saravanan Doran MD I agree with the assessment and [facility] plan of care. Disposition: 11/06/20 19:50 Discharged to Home. Impression: Cholelithiasis. - Condition is Stable. - Discharge Instructions: Cholelithiasis, [id number]. - Prescriptions for Bentyl 20 mg Oral Tablet - take 1 tablet by ORAL route every 6 hours As needed; 20 tablet. Zofran 4 mg Oral Tablet - take 1 tablet by ORAL route every 6 hours As needed; 20 tablet. - Medication Reconciliation Form, Thank You Letter, Antibiotic Education, Prescription Opioid Use form. - Follow up: Emergency Department; When: As needed; Reason: Worsening of condition. Follow up: Private Physician; When: 2 - 3 days; Reason: Recheck today's complaints, Continuance of care, Re-evaluation by your physician. Signatures: Dispatcher [employer] Andria Feldman, PATRICA-Khoi VILLASEÑORP-Sara Overton RN RN sv Anderson, Corey, MD MD cha Habalo, Winsy Corrections: (The following items were deleted from the chart) 11/06 20:12 19:50 11/06/2020 19:50 Discharged to Home. Impression: Cholelithiasis. Condition is wh Stable. Forms are Medication Reconciliation Form, Thank You Letter, Antibiotic Education, Prescription Opioid Use. Follow up: Emergency Department; When: As needed; Reason: Worsening of condition. Follow up: Private Physician; When: 2 - 3 days; Reason: Recheck today's complaints, Continuance of care, Re-evaluation by your physician. kb
[2020-11-08 20:20] VITALS: BP 123/60; O2SAT 99
[2020-11-08 20:22] VITALS: TEMP 97.3
== END 2020-11-06 20:12 | disposition home or self-care (01) ==
LOC: ER 17:33
DX: K80.20 Calculus of gallbladder without cholecystitis without obstruction (principal); Z88.0 Allergy status to penicillin
CPT/HCPCS: 36415; 76705; 80048; 80076; 83690; 85025; 96374; 99284

== ENCOUNTER 2020-12-22 21:54 | Observation (INO) | payer BC ==
--- OUTSIDE RECORDS SUMMARY | 2020-12-22 21:56 | XMS REPORT | Continuity of Care Document ---
:1985 Author Organization [facility] t Address [address] [place] [address] Dr. Le[address]anc [address] [place] [id number] Care Team Providers Name Role Phone Unavailable Unavailable Unavailable Problems This patient has no known problems. Allergies, Adverse Reactions, Alerts This patient has no known allergies or adverse reactions. Medications This patient has no known medications. Procedures This patient has no known procedures. Results This patient has no known results.
[2020-12-22 22:45] LABS: Absolute Lymphocytes (CBC) 3.5 K/uL (0.7-4.9); Basophils % 0.4 % (0-1.3); Hematocrit 35.4 % (36.0-45.0); Lymphocytes % 41.4 % (15.3-44.8); MPV 8.8 fL (7.6-11.3); RBC Red Blood Cell Count 4.49 M/uL (3.86-4.86)
--- NOTE | 2020-12-22 22:52 | EDPHYS ---
Physician Documentation [facility] Name: Elizabeth Severino Age: 35 yrs Sex: Female : 1985 Arrival Date: 12/22/2020 Time: 21:55 Bed 19 Private MD: NICO Physician Saravanan Doran HPI: 12/22 22:09 This 35 yrs old Female presents to ER via Ambulatory with complaints of kb GallBladder Pain. 22:09 The patient presents with abdominal pain in the right upper quadrant. Onset: The kb symptoms/episode began/occurred today. The symptoms do not radiate. Associated signs and symptoms: none. The symptoms are described as constant, sharp. Modifying factors: The symptoms are alleviated by nothing, the symptoms are aggravated by nothing. Severity of pain: At its worst the pain was moderate severe in the emergency department the pain is unchanged. The patient has not experienced similar symptoms in the past. The patient has not recently seen a physician. 22:11 Pt reports she was diagnosed with gallstones in October. Was seen by Dr Boyd on kb and is trying to get funds in order so she can have surgery. States pain started up again today after eating crawfish. GORE STITCHER: 12/23 04:34 LMP N/A - UNknown wh Historical: - Allergies: 12/22 22:04 PENICILLINS; ll2 - PMHx: 22:04 None; ll2 - PSHx: 22:04 None; ll2 - Immunization history:: Flu vaccine is not up to date. - Social history:: Smoking status: Patient denies any tobacco usage or history of. ROS: 22:10 Constitutional: Negative for fever, chills, and weight loss, Cardiovascular: Negative kb for chest pain, palpitations, and edema, Respiratory: Negative for shortness of breath, cough, wheezing, and pleuritic chest pain, Back: Negative for injury and pain, MS/Extremity: Negative for injury and deformity, Skin: Negative for injury, rash, and discoloration, Neuro: Negative for headache, weakness, numbness, tingling, and seizure. 22:10 Abdomen/GI: Positive for abdominal pain, Negative for nausea, vomiting, and diarrhea. Exam: 22:10 Constitutional: This is a well developed, well nourished patient who is awake, alert, kb and in no acute distress. Head/Face: Normocephalic, atraumatic. Chest/axilla: Normal chest wall appearance and motion. Nontender with no deformity. No lesions are appreciated. Cardiovascular: Regular rate and rhythm with a normal S1 and S2. No gallops, murmurs, or rubs. Normal PMI, no JVD. No pulse deficits. Respiratory: Lungs have equal breath sounds bilaterally, clear to auscultation and percussion. No rales, rhonchi or wheezes noted. No increased work of breathing, no retractions or nasal flaring. Skin: Warm, dry with normal turgor. Normal color with no rashes, no lesions, and no evidence of cellulitis. MS/ Extremity: Pulses equal, no cyanosis. Neurovascular intact. Full, normal range of motion. Neuro: Awake and alert, GCS 15, oriented to person, place, time, and situation. Cranial nerves II-XII grossly intact. Motor strength 5/5 in all extremities. Sensory grossly intact. Cerebellar exam normal. Normal gait. 22:10 Abdomen/GI: Inspection: abdomen appears normal, Bowel sounds: normal, in all quadrants, Palpation: soft, in all quadrants, moderate abdominal tenderness, in the right upper quadrant. Vital Signs: 22:03 BP 132 / 102; Pulse 75; Resp 18; Temp 98.5; Pulse Ox 96% on R/A; Weight 113.4 kg; ll2 Height 5 ft. 2 in. (157.48 cm); Pain 10/10; 22:30 BP 135 / 82; Pulse 63; Resp 22; Pulse Ox 98% on R/A; ll2 22:03 Body Mass Index 45.73 (113.40 kg, 157.48 cm) ll2 MDM: 22:01 Patient medically screened. [facility] 22:08 Data reviewed: vital signs, nurses notes. Data interpreted: Pulse oximetry: on room air kb is 96 %. Interpretation: normal. 22:51 Counseling: I had a detailed discussion with the patient and/or guardian regarding: the kb historical points, exam findings, and any diagnostic results supporting the discharge/admit diagnosis, lab results, radiology results, the need for further work-up and treatment in the hospital. ED course: Discussed with ERP. Recommended admission to [facility]. 23:07 Physician consultation: Luis Boyd MD was contacted at 23:07, regarding admission, kb patient's condition, and will see patient in inpatient room, tomorrow. 12/22 21:59 Order name: Basic Metabolic Panel; Complete Time: 23:04 kb 12/22 21:59 Order name: CBC with Diff; Complete Time: 22:47 kb 12/22 21:59 Order name: Hepatic Function; Complete Time: 23:04 kb 12/22 21:59 Order name: Lipase; Complete Time: 23:04 kb 12/22 23:25 Order name: COVID-19 : Document "Date of Symptom Onset" if Symptomatic. [facility] 12/22 23:43 Order name: Urine Dipstick--Ancillary (enter results) [facility] 12/22 23:43 Order name: Urine --Ancillary (enter results) [facility] 12/22 23:51 Order name: CORONAVIRUS [facility] 12/23 00:01 Order name: Urine --Ancillary [facility] 12/23 00:02 Order name: Urine Dipstick-Ancillary [facility] 12/23 00:39 Order name: SARS-COV-2 RT PCR [facility] 12/23 06:13 Order name: CBC with Automated Diff [facility] 12/23 06:44 Order name: Basic Metabolic Panel [facility] 12/23 06:44 Order name: Liver (Hepatic) Function [facility] 12/22 21:59 Order name: IV Saline Lock; Complete Time: 23:24 kb 12/22 21:59 Order name: Labs collected and sent; Complete Time: 23:24 kb 12/22 22:56 Order name: Urine Dipstick-Ancillary (obtain specimen); Complete Time: 23:32 [facility] 12/22 22:56 Order name: Urine Test (obtain specimen); Complete Time: 23:32 [facility] 12/23 06:44 Order name: Lipase [facility] Administered Medications: 22:45 Drug: Zofran (Ondansetron) 4 mg Route: IVP; Site: left antecubital; [facility] 12/23 04:41 Follow up: Response: No adverse reaction; Nausea is decreased 12/22 22:46 Drug: NS 0.9% 1000 ml Route: IV; Rate: 1000 ml; Site: left antecubital; [facility] 12/23 04:42 Follow up: Response: No adverse reaction; IV Status: Completed infusion 12/22 22:46 Drug: morphine 4 mg Route: IVP; Site: left antecubital; 2 12/23 04:41 Follow up: Response: No adverse reaction; Pain is decreased; RASS: Alert and Calm (0) 12/22 22:56 Drug: Pepcid 20 mg Route: IVP; Site: left antecubital; 2 12/23 04:41 Follow up: Response: No adverse reaction 12/22 23:04 Drug: LevaQUIN 750 mg Volume: 150 ml; Route: IVPB; Infused Over: 90 mins; Site: left ll2 antecubital; 12/23 04:41 Follow up: Response: No adverse reaction; IV Status: Completed infusion Point of Care Testing: Urine : 12/22 23:41 hCG Reading: Negative; Control Reading: Positive; jp3 Disposition: 12/23 19:52 Co-signature as Attending Physician, Saravanan Doran MD I agree with the assessment and luisa plan of care. Disposition: 12/22/20 22:52 Hospitalization ordered by Luis Boyd for Observation. Preliminary diagnosis is Cholelithiasis - intractible pain. - Bed requested for Telemetry/MedSurg (observation). - Status is Observation. eb - Condition is Stable. - Problem is new. - Symptoms are unchanged. Signatures: Dispatcher [employer] [facility] Andria Ramírez, KIMBERLEY VILLASEÑORP-Jeane Khalil, RN RN Saravanan Doran MD MD cha Westbrook, MyKena mw2 Esperanza Pantoja Lacie, RN RN [facility] Cory Iverson RN Corrections: (The following items were deleted from the chart) 12/22 22:48 22:11 Pt reports she was diagnosed with gallstones in October. Was seen by Dr Boyd on and is trying to get funds in order so she can have surgery. States pain started up again today. kb 23:02 22:03 Abdomen Pelvis W Con+CT.RAD.BRZ ordered. EDMS EDMS 23:07 22:52 Hospitalization Ordered by Morgan Ta MD for Observation. Preliminary diagnosis kb is Cholelithiasis - intractible pain. Bed requested for Telemetry/MedSurg (observation). Status is Observation. Condition is Stable. Problem is new. Symptoms are unchanged. kb 23:43 23:07 12/22/2020 22:52 Hospitalization Ordered by Luis Boyd MD for Observation. mw Preliminary diagnosis is Cholelithiasis - intractible pain. Bed requested for Telemetry/MedSurg (observation). Status is Observation. Condition is Stable. Problem is new. Symptoms are unchanged. kb 12/23 11:31 12/22 23:43 12/22/2020 22:52 Hospitalization Ordered by Luis Boyd MD for Observation. eb Preliminary diagnosis is Cholelithiasis - intractible pain. Bed requested for [facility] ER HOLD. Status is Observation. Condition is Stable. Problem is new. Symptoms are unchanged. mw 12/23 12:24 11:31 12/22/2020 22:52 Hospitalization Ordered by Luis Boyd MD for Observation. eb Preliminary diagnosis is Cholelithiasis - intractible pain. Bed requested for Telemetry/MedSurg (observation). Status is Observation. Condition is Stable. Problem is new. Symptoms are unchanged. eb
--- NOTE | 2020-12-22 22:52 | ER ---
Nurse's Notes [facility] Name: Elizabeth Severino Age: 35 yrs Sex: Female : 1985 Arrival Date: 12/22/2020 Time: 21:55 Bed 19 Private MD: Diagnosis: Cholelithiasis-intractible pain Presentation: 12/22 22:03 Chief complaint: Patient states: Known gallstones since October. Saw Dr. Boyd ll2 . Working on payment for surgery. Severe pain today. Coronavirus screen: Client denies travel out of the [place] in the last 14 days. At this time, the client does not indicate any symptoms associated with coronavirus-19. Ebola Screen: Patient denies travel to an Ebola-affected area in the 21 days before illness onset. Initial Sepsis Screen: Does the patient meet any 2 criteria? No. Patient's initial sepsis screen is negative. Does the patient have a suspected source of infection? Yes: Acute abdominal pain. Risk Assessment: Do you want to hurt yourself or someone else? Patient reports no desire to harm self or others. Onset of symptoms was December 22, 2020. 22:03 Method Of Arrival: Ambulatory ll2 22:03 Acuity: ARSALAN 3 ll2 CERTIFIED MIDWIFE: 12/23 04:34 LMP N/A - UNknown wh Historical: - Allergies: 12/22 22:04 PENICILLINS; ll2 - PMHx: 22:04 None; ll2 - PSHx: 22:04 None; ll2 - Immunization history:: Flu vaccine is not up to date. - Social history:: Smoking status: Patient denies any tobacco usage or history of. Screenin:52 Abuse screen: Denies threats or abuse. Nutritional screening: No deficits noted. ll2 Tuberculosis screening: No symptoms or risk factors identified. Fall Risk None identified. Assessment: 22:30 General: Appears uncomfortable, Behavior is cooperative, appropriate for age. Pain: ll2 Complains of pain in right upper quadrant. Neuro: Level of Consciousness is awake, alert, obeys commands, Oriented to person, place, time, situation. Cardiovascular: Patient's skin is warm and dry. Respiratory: Airway is patent Respiratory effort is even, unlabored, Respiratory pattern is regular, symmetrical. : No signs and/or symptoms were reported regarding the genitourinary system. EENT: No signs and/or symptoms were reported regarding the EENT system. Derm: Skin is pink, warm \\T\\ dry. Musculoskeletal: Circulation, motion, and sensation intact. Range of motion: intact in all extremities. 23:32 Reassessment: Patient and/or family updated on plan of care and expected duration. Pain ll2 level reassessed. Patient is alert, oriented x 3, equal unlabored respirations, skin warm/dry/pink. Vital Signs: 22:03 BP 132 / 102; Pulse 75; Resp 18; Temp 98.5; Pulse Ox 96% on R/A; Weight 113.4 kg; ll2 Height 5 ft. 2 in. (157.48 cm); Pain 10/10; 22:30 BP 135 / 82; Pulse 63; Resp 22; Pulse Ox 98% on R/A; ll2 22:03 Body Mass Index 45.73 (113.40 kg, 157.48 cm) ll2 ED Course: 21:55 Patient arrived in ED. cl3 22:01 Andria Ramírez [facility]C [facility] kb 22:01 Saravanan Doran MD is Attending Physician. kb 22:04 Triage completed. ll2 22:04 Arm band placed on Patient placed in an exam room, on a stretcher. ll2 22:38 Mirtha Lanier RN is Primary Nurse. ll2 22:52 Morgan Ta MD is Hospitalizing Provider. kb 22:52 Patient has correct armband on for positive identification. Bed in low position. Call ll2 light in reach. Side rails up X 1. Pulse ox on. NIBP on. 22:52 No provider procedures requiring assistance completed. Inserted saline lock: 20 gauge ll2 in left antecubital area, using aseptic technique. ,using aseptic technique. inserted by PATRICA Ayers. 23:07 Luis Boyd MD is Hospitalizing Provider. kb 23:41 Urine collected: clean catch specimen, clear, benedict colored, COVID swab sent to lab. jp3 23:41 COVID-19 : Document "Date of Symptom Onset" if Symptomatic. Sent. jp3 12/23 04:33 Patient admitted, IV remains in place. 07:29 Primary Nurse role handed off by Mirtha Lanier RN eb Administered Medications: 12/22 22:45 Drug: Zofran (Ondansetron) 4 mg Route: IVP; Site: left antecubital; [facility] 12/23 04:41 Follow up: Response: No adverse reaction; Nausea is decreased 12/22 22:46 Drug: NS 0.9% 1000 ml Route: IV; Rate: 1000 ml; Site: left antecubital; [facility] 12/23 04:42 Follow up: Response: No adverse reaction; IV Status: Completed infusion 12/22 22:46 Drug: morphine 4 mg Route: IVP; Site: left antecubital; [facility] 12/23 04:41 Follow up: Response: No adverse reaction; Pain is decreased; RASS: Alert and Calm (0) 12/22 22:56 Drug: Pepcid 20 mg Route: IVP; Site: left antecubital; [facility] 12/23 04:41 Follow up: Response: No adverse reaction 12/22 23:04 Drug: LevaQUIN 750 mg Volume: 150 ml; Route: IVPB; Infused Over: 90 mins; Site: left ll antecubital; 12/23 04:41 Follow up: Response: No adverse reaction; IV Status: Completed infusion Point of Care Testing: Urine : 12/22 23:41 hCG Reading: Negative; Control Reading: Positive; jp3 Outcome: 22:52 Decision to Hospitalize by Provider. 12/23 04:33 Admitted to ER Hold. Please see [facility] for further documentation. Condition: stable Instructed on the need for admit. 12:24 Patient left the ED. eb Signatures: Andria Ramírez, MADINAC SOCIAL SCIENTIST-Cory Venegas, MARY HERNANDEZ Esperanza Pantoja Jacob jp3 Nima Sherman Lacie, RN RN 2
[2020-12-22] MEDS ORDERED: ONDANSETRON 4 MG/2 ML VIAL ONE (22:57)
[2020-12-22] MEDS ORDERED: NA CHLORIDE 0.9% 1,000 ML ONE (22:57)
[2020-12-22] MEDS ORDERED: MORPHINE 4 MG/ML SYR ONE (22:57)
[2020-12-22 23:03] LABS: ALT/SGPT 33 U/L (12-78); AST/SGOT 16 U/L (15-37); Albumin 3.5 g/dL (3.4-5.0); Alkaline Phosphatase 120 U/L (45-117); BUN Blood Urea Nitrogen 21 mg/dL (7-18); Bicarbonate 31 mmol/L (21-32); Bilirubin Direct < 0.1 mg/dL (0-0.2); Bilirubin Total 0.2 mg/dL (0.2-1.0); Glucose Level 101 mg/dL (74-106); Lipase 127 U/L (73-393); Potassium 3.7 mmol/L (3.5-5.1); Protein, Total 7.3 g/dL (6.4-8.2); Sodium Level 138 mmol/L (136-145)
[2020-12-22] MEDS ORDERED: FAMOTIDINE 20 MG/2 ML VIAL IV ONE (23:11)
[2020-12-22] MEDS ORDERED: Levofloxacin 750mg IV 750 MG/150 ML BAG IV ONE (23:17)
[2020-12-23 00:01] LABS: Urine Blood TRACE (NEG); Urine Glucose NEGATIVE (NEG); Urine Protein NEGATIVE (NEG); Urine Specific Gravity >1.030 (1.005-1.030); Urine pH 5.5 (5.0-7.0)
[2020-12-23 04:35] VITALS: BMI 45.7
[2020-12-23] MEDS: NA CHLORIDE 0.9% 1,000 ML IV SCH ×3 (04:36→21:19)
[2020-12-23] MEDS ORDERED: ONDANSETRON 4 MG/2 ML VIAL IV PRN (04:36)
[2020-12-23] MEDS: Levofloxacin500mg IV 500 MG/100 ML BAG IV SCH (04:36)
[2020-12-23] MEDS ORDERED: NA CHLORIDE 0.9% 1,000 ML ONE (05:19)
[2020-12-23 06:09] LABS: Absolute Lymphocytes (CBC) 2.7 K/uL (0.7-4.9); Basophils % 0.4 % (0-1.3); Lymphocytes % 32.5 % (15.3-44.8); MPV 9.3 fL (7.6-11.3); RBC Red Blood Cell Count 4.38 M/uL (3.86-4.86)
[2020-12-23 06:44] LABS: ALT/SGPT 33 U/L (12-78); AST/SGOT 17 U/L (15-37); Alkaline Phosphatase 100 U/L (45-117); BUN Blood Urea Nitrogen 20 mg/dL (7-18); Bicarbonate 25 mmol/L (21-32); Bilirubin Direct 0.1 mg/dL (0-0.2); Bilirubin Total 0.4 mg/dL (0.2-1.0); Glucose Level 97 mg/dL (74-106); Lipase 78 U/L (73-393); Potassium 3.8 mmol/L (3.5-5.1); Protein, Total 6.5 g/dL (6.4-8.2); Sodium Level 138 mmol/L (136-145)
[2020-12-23] MEDS ORDERED: INFLUENZA VACCINE (for 3y+) 0.5 ML DOSE IMVAC ONE (10:00)
--- NOTE | 2020-12-23 10:15 | HP ---
Date of Admission: 12/22/2020 Reason For Admission: Abdominal pain. History Of Present Illness: The patient is a 35-year-old female with biliary colic for quite some ti me. Had an ultrasound done in October and was diagnosed with cholelithiasis and mild cholecystitis. She saw me and was planning on having surgery as soon as the financial goals were met. Antonio tavares ate some crawfish yesterday and had biliary colic with pain in the epigastrium going to the right u pper quadrant and then to the back, associated with belching. No nausea or vomiting. She has had pa in similar to this in the past, but this was very severe and she could not tolerate it. She came to the emergency room and was admitted. Parenteral pain medicine was given. She was given antibiotics and she was admitted to my service. She is awake, alert, feels a little better now. No pain current ly. She just got pain medications. No diarrhea or constipation. No blood in her stool. No dysuria or hematuria. No sore throat, runny nose, cough, headaches, or dizziness. No chest pain. No fever or chills. Review of Systems: Otherwise unremarkable. Past Medical History: Negative. Past Surgical History: Negative. Allergies: INCLUDE PENICILLIN. Social History: She does not smoke. Drinks occasionally. Family History: Noncontributory. Physical Examination: Vital Signs: Stable. She is afebrile. General: She is awake, alert, and oriented x3. Head and Neck: Cranial nerves 2 through 12 are grossly within normal limits. No neck masses. No JV D. Throat clear. Neck is supple. Chest: Clear. Heart: S1 and S2. Abdomen: Soft, nondistended. Positive bowel sounds. Positive right upper quadrant tenderness. No rebound, rigidity, or guarding. Extremities: Adequately perfused. Nontender. Neuro: Nonfocal. Laboratory Data: Reviewed. Her LFT and amylase are within normal limits. White count is 8.4, H and H are 11.3 and 35, platelets are 242. An ultrasound in October reviewed. She had mild thickening of the gallbladder wall. Assessment: Chronic and acute cholecystitis and cholelithiasis. Plan: Admit and continue IV antibiotics today. In a.m., we will proceed with lap choly possible ope n. The patient understands the risks, benefits, and alternatives and agrees to procedure. Plan of c are discussed in detail with the patient. TREMAYNE/KARSTEN Voice ID: [id number]
[2020-12-23] MEDS: MORPHINE 4 MG/ML SYR IV PRN ×2 (12:43→21:15)
[2020-12-24] MEDS: Levofloxacin500mg IV 500 MG/100 ML BAG IV SCH (03:39)
[2020-12-24] MEDS: NA CHLORIDE 0.9% 1,000 ML IV SCH ×2 (04:57→12:30)
[2020-12-24] MEDS ORDERED: Ringers Lactate 1,000 ML IV ONE (09:27)
[2020-12-24] MEDS ORDERED: MIDAZOLAM HCL 2 MG/2 ML INJ ONE (10:02)
[2020-12-24] MEDS ORDERED: LIDOCAINE 1% MPF 5 ML VIAL ONE (10:02)
[2020-12-24] MEDS ORDERED: FENTANYL CITR 100 MCG/2 ML ONE ×3 (10:02→12:14)
[2020-12-24] MEDS ORDERED: dexAMETHasone 10 MG/ML VIAL ONE (10:02)
[2020-12-24] MEDS ORDERED: propofoL 200 MG/20 ML VIAL IV ONE (10:02)
[2020-12-24] MEDS ORDERED: ROCURONIUM 50 MG/5 ML VIAL IV ONE (10:03)
[2020-12-24] MEDS ORDERED: CEFOXITIN/SWI 1gm 1 GM/10 ML SYR ONE (10:22)
[2020-12-24] MEDS ORDERED: GLYCOPYRROLATE 0.2 MG/ML SYR ONE ×2 (10:40→11:42)
[2020-12-24] MEDS ORDERED: ONDANSETRON 4 MG/2 ML VIAL ONE ×2 (11:18→12:14)
--- NOTE | 2020-12-24 11:35 | P.OP ---
Appeals Referee: Maddie SEAMAN Preoperative diagnosis: Acute and Chronic Cholecystitis and Cholelithiasis Postoperative diagnosis: same Primary procedure: Lap Sarika Anesthesia: General Estimated blood loss: min Specimen: GB Findings: as above Complications: None Transferred to: Recovery Room Condition: Good
[2020-12-24] MEDS ORDERED: NEOSTIGMINE 1 MG/ML -5 ML ONE (11:42)
[2020-12-24] MEDS ORDERED: KETOROLAC 30 MG/ML INJ ONE (11:42)
[2020-12-24] MEDS ORDERED: HYDROMORPHONE HCL 1 MG/ML INJ IV PRN (11:46)
[2020-12-24] MEDS ORDERED: HYDROCODONE/APAP 7.5/325 MG TAB PO PRN (11:46)
[2020-12-24] MEDS ORDERED: ONDANSETRON 4 MG/2 ML VIAL IV PRN (11:46)
--- NOTE | 2020-12-24 12:19 | OP ---
Date of Procedure: 12/24/2020 Surgeon: Luis Boyd MD Supervisor Paper Machine: JURGEN Johnson. Preoperative Diagnoses: Acute and chronic cholecystitis and cholelithiasis. Postoperative Diagnoses: Acute and chronic cholecystitis and cholelithiasis. Procedure: Laparoscopic cholecystectomy. Estimated Blood Loss: Minimal. Specimen: Gallbladder. Findings: As above. Anesthesia: General. Complications: None. Disposition: The patient tolerated procedure in stable condition, taken to Recovery in good general condition. Operative Note: The patient was brought to the OR and placed in supine position. General anesthesia was begun. The patient was prepped and draped in the usual sterile fashion. Marcaine 0.5% was infi ltrated locally. A 15 blade was used to make a 1 cm infraumbilical midline incision. Subcutaneous t issue was divided. Fascia was identified and divided. #1 Vicryl stay suture was placed. Peritoneal cavity was entered with blunt dissection. A 12-mm trocar was placed into the peritoneal cavity unde r direct vision. Pneumoperitoneum was established and then three 5 mm trocars were placed, 1 in the epigastrium just to the right of midline and 2 in the right subcostal region. Laparoscopy revealed c hronic and acute inflammation of the gallbladder. Fundus was retracted superiorly. Infundibulum was identified and retracted inferolaterally. Cystic duct and cystic artery were clearly identified wit h blunt dissection. Clips were placed. Both structures were divided. Cautery was used to remove th e gallbladder from the liver bed. Bleeding on the liver bed was controlled with cautery. Gallbladde r was retrieved through the umbilicus via an EndoCatch bag. Right upper quadrant was irrigated. Eff luent was clear. No evidence of bleeding or bile leakage was appreciated. Subsequently, all trocars were removed under direct vision. Stay sutures were tied to each other to approximate the fascial d efect. Subcutaneous wounds were irrigated. Bleeding was controlled with cautery. A 3-0 chromic was used to re-approximate the subcutaneous tissue and close the skin. Sterile dressing was applied. T he patient was awakened and taken to Recovery in good general condition. Discharge Note: The patient will go to the floor and when stable will be discharged to home. Disposition: Home. Condition: Stable. Discharge Instructions: Resume home meds and diet. Activity as tolerated. No heavy lifting. Remov e outer dressing in 2 days. Shower. Keep wound clean and dry. Keep Steri-Strips on at all times. Follow up in my office in 1 week. Call for appointment. Tylenol No.3 one tablet p.o. q.4 p.r.n. jai CASPER/KARSTEN Voice ID: [id number] Report ID: [id number]
[2020-12-24 13:25] VITALS: O2SAT 99
[2020-12-24 15:24] VITALS: BP 135/69; TEMP 97.7
== END 2020-12-24 16:17 | disposition home or self-care (01) ==
LOC: ER 21:54 → ERHOLD 23:00 → 2ND 12-23 11:41
PROVIDERS: ADMIT Surgery; ATTEND Surgery
PROC: 0FT44ZZ Resection of Gallbladder, Percutaneous Endoscopic Approach (ICD-10-PCS; principal; 2020-12-24 10:45)
DX: K80.12 Calculus of gallbladder with acute and chronic cholecystitis without obstruction (principal); Z88.0 Allergy status to penicillin; Z20.822 Contact with and (suspected) exposure to COVID-19
CPT/HCPCS: 96365; 85025 ×2; 80048 ×2; 36415; 81025; 80076 ×2; 88304; 81003; 83690 ×2; 94010; 96375; 99285; 96366; 47562; U0003; J2704; J2250; J3010 ×3; J1100; J1170; J2710; J7120; J7030 ×4; J2405 ×3

== ENCOUNTER 2025-04-18 21:23 | Emergency (ER) | payer BC, SELFPAY ==
--- OUTSIDE RECORDS SUMMARY | 2025-04-18 21:26 | XMS REPORT | Continuity of Care Document ---
Author Name Unknown Address [address] [place] [address] [facility] [place] Address [address] [place] [address] Care Team Providers Care Investment Accountant Name Role Phone Roberto [place] Primary Care Physician [phone] DIAMOND EISENBERG Attending Clinician Unavailable Diamond Eisenberg MD Attending Clinician [phone] Doctor Unassigned, Speed Attending Clinician U navailable Pob, Adc Lab Main Attending Clinician UnavailDiamond Diego MD Admitting Clinician [phone] DIAMOND EISENBERG Admitting Clinician Unavailable Payers Payer Name Policy Type Policy Number Effective Date Expirati on Date Source [facility] [id number] 2018 00:00:00 Problems Condition Name Condition Details Condition Category Status Onset Date Resolution Date Last Treatment Date Treating Clinician Comments Source BCP ( control pills) initiation BCP ( control pills) initiation Disease Active 12-01 00:00: 00 [facility] Status post hysterosco py Status post hysterosco py Disease Active 2021-11 00:00: 00 [facility] Encounter for IUD removal Encounter for IUD removal Disease Active 2021-11 00:00: 00 [facility] Status post hysterosco pic myomectomy Status post hysterosco pic myomectomy Disease Active 2021-11 00:00: 00 [facility] Intrauteri ne contracept apolonia device threads lost, subsequent encounter Intrauteri ne contracept apolonia device threads lost, subsequent encounter Disease Active 2021-11 00:00: 00 Overview: Formattin g of this note might be different from the original. Added automatic ally from request for surgery [id number] [facility] Morbid obesity with body mass index of 40.0-49.9 Morbid obesity with body mass index of 40.0-49.9 Disease Active 04-20 00:00: 00 [facility] Morbid obesity with body mass index of 50 or higher Morbid obesity with body mass index of 50 or higher Disease Active 04-20 00:00: 00 [facility] 38 weeks gestation of 38 weeks gestation of Disease Active 04-20 00:00: 00 [facility] High-risk , second trimester High-risk , second trimester Disease Active 12-15 00:00: 00 [facility] Hx of preeclamps ia, prior , currently , second trimester Hx of preeclamps ia, prior , currently , second trimester Disease Active 12-15 00:00: 00 [facility] Uterine size-date discrepanc y, antepartum , second trimester Uterine size-date discrepanc y, antepartum , second trimester Disease Active 12-15 00:00: 00 [facility] Depression , unspecifie d depression type Depression , unspecifie d depression type Disease Active 12-15 00:00: 00 [facility] Allergies, Adverse Reactions, Alerts Allergy Name Allergy Type Status Severity Reaction(s) Onset Date Inactive Date Treating Clinician Comments Source Penicill ins Propensi ty to adverse reaction s Active Unknown - See comments 12-15 00:00: 00 Childhood reaction [facility] PENICILL INS Drug Class Active Unknown-Cmnt 12-15 00:00: 00 [facility] Social History Social Habit Start Date Stop Date Quantity Comments Source Sexual orientation U [facility] Exposure to SARS-CoV-2 (event) 2022-11-21 00:00:00 2022-12-01 10:06:00 Not sure [facility] Alcohol intake 2022-12-01 00:00:00 2022-12-01 00:00:00 0 /d [facility] History of Social function 2022-11-11 00:00:00 2022-11-11 00:00:00 [facility] Tobacco use and exposure 2022-10-13 00:00:00 2022-10-13 00:00:00 Smokeless tobacco non-user [facility] Alcohol Comment 2016-12-15 00:00:00 2016-12-15 00:00:00 rare [facility] Sex Assigned At 1985 00:00:00 1985 00:00:00 [facility] Smoking Status Start Date Stop Date Source Never smoked tobacco [facility] Medications Ordered Medication Name Filled Medication Name Start Date Stop Date Current Medication? Ordering Clinician Indication Dosage Frequency Signature (SIG) Comments Components Source norgestimat e-ethinyl estradioL 0.25-35 mg-mcg per tablet 12-01 00:00: 00 Yes [id number] 1{tbl} Take 1 tablet by mouth in the morning. [facility] FENTanyl PF (SUBLIMAZE (PF)) injection 25 mcg 2021-11 14:52: 42 Yes 25ug 25 mcg, Slow IV Push, Q5MIN PRN, 4 doses, Starting on Thu11/11/22 at 0852, Until Discontinu ed, Routine, Pain (scale 4-6), PACU [facility] HYDROmorphO ne (DILAUDID) injection 0.2 mg 2021-11 14:52: 42 Yes .2mg 0.2 mg, Slow IV Push, Q5MIN PRN, 10 doses, Starting on Thu11/11/22 at 0852, Until Discontinu ed, Routine, Pain (scale 7-10), PACU
Us e approved by (Faculty): PACU USE -ANESTHESI A SERVICE-HY DROMORPHON E INJECTIONS [facility] ondansetron (ZOFRAN (PF)) injection 4 mg 2021-11 14:52: 42 Yes 4mg 4 mg, Slow IV Push, PRN, 1 dose, Starting on Thu11/11/22 at 0852, Until Discontinu ed, Routine, Nausea and Vomiting (N/V), PACU [facility] acetaminoph en ADULT (OFIRMEV) injection 1,000 mg 2021-11 14:52: 42 11-12 14:51 :42 No 1000mg 1,000 mg, IV Infusion, at 400 mL/hr Administer over 15 Minutes, PRN, Starting on Thu11/11/22 at 0852, Until Thu11/12/22 at 0851, Routine, Pain (scale 1-3), PACU
In dication: Perioperat apolonia Patient [facility] sodium chloride 0.9 % irrigation solution 2021-11 14:25: 00 11-11 15:13 :51 No PRN, Starting on Thu11/11/22 at 0825, Until Thu11/11/22 at 0913, Intra-op [facility] ferric subsulfate (MONSEL'S SOLUTION) solution 2021-11 14:25: 00 11-11 15:13 :51 No PRN, Starting on Thu11/11/22 at 0825, Until Thu11/11/22 at 0913, Routine, Intra-op [facility] lactated ringers IV infusion 1,000 mL 2021-11 13:00: 00 11-11 13:01 :00 No 1000mL at 42 mL/hr, 1,000 mL, IV Infusion, ONCE, 1 dose, On Thu11/11/22 at 0700, Routine, DSU Pre-op [facility] ibuprofen 600 mg tablet 2021-11 00:00: 00 12-01 00:00 :00 No [id number] 600mg Take 1 tablet by mouth every 6 (six) hours as needed for Pain (scale 1-3) or Pain (scale 4-6). [facility] acetaminoph en (TYLENOL) 325 mg tablet 2021-11 00:00: 00 12-01 00:00 :00 No [id number] 650mg Take 2 tablets by mouth every 6 (six) hours as needed for Pain (scale 1-3) or Pain (scale 4-6). [facility] VIT CALC,IRON,F OLIC ( VITAMIN ORAL) 2021-11 09:38: 18 10-13 00:00 :00 No 1{tbl} Take 1 tablet by mouth daily. [facility] ferrous sulfate 325 mg (65 mg iron) tablet 2021-11 09:38: 12 10-13 00:00 :00 No 325mg Take 325 mg by mouth daily. [facility] ASCORBATE CALCIUM (VITAMIN C ORAL) 2021-11 09:38: 09 10-13 00:00 :00 No Take by mouth. [facility] polymyxin B sulf-trimet hoprim 10,000 unit- 1 mg/mL ophthalmic drops 2021-11 00:00: 00 12-01 00:00 :00 No [id number] 9105 1[drp] Place 1 Drop in left eye every 4 (four) hours. [facility] ASCORBATE CALCIUM (VITAMIN C ORAL) 07-13 08:22: 05 Yes Take by mouth. [facility] ferrous sulfate 325 mg (65 mg iron) tablet 07-13 08:22: 05 Yes 325mg Take 325 mg by mouth daily. [facility] Immunizations Ordered Immunization Name Filled Immunization Name Date Status Comments Source TDAP 2023-01-05 00:00:00 Completed [facility] Influenza Virus Vaccine Quad ID 18-64 YRS 2023-01-05 00:00:00 Completed [facility] Influenza Virus Vaccine Quad ID 18-64 YRS 2017-03-05 00:00:00 Completed [facility] Influenza Virus Vaccine Quad ID 18-64 YRS 2017-03-05 00:00:00 Completed [facility] Influenza Virus Vaccine Quad ID 18-64 YRS 2017-03-05 00:00:00 Completed [facility] Influenza Virus Vaccine Quad ID 18-64 YRS 2017-03-05 00:00:00 Completed [facility] Influenza Virus Vaccine Quad ID 18-64 YRS 2017-03-05 00:00:00 Completed [facility] Influenza Virus Vaccine Quad ID 18-64 YRS 2017-03-05 00:00:00 Completed [facility] Influenza Virus Vaccine Quad ID 18-64 YRS 2017-03-05 00:00:00 Completed [facility] Influenza Virus Vaccine Quad ID 18-64 YRS 2017-03-05 00:00:00 Completed [facility] Influenza Virus Vaccine Quad ID 18-64 YRS 2017-03-05 00:00:00 Completed [facility] Influenza Virus Vaccine Quad ID 18-64 YRS 2017-03-05 00:00:00 Completed [facility] Influenza Virus Vaccine Quad ID 18-64 YRS 2017-03-05 00:00:00 Completed [facility] TDAP 2017-02-05 00:00:00 Completed [facility] TDAP 2017-02-05 00:00:00 Completed [facility] TDAP 2017-02-05 00:00:00 Completed [facility] TDAP 2017-02-05 00:00:00 Completed [facility] TDAP 2017-02-05 00:00:00 Completed [facility] TDAP 2017-02-05 00:00:00 Completed [facility] TDAP 2017-02-05 00:00:00 Completed [facility] TDAP 2017-02-05 00:00:00 Completed [facility] TDAP 2017-02-05 00:00:00 Completed [facility] TDAP 2017-02-05 00:00:00 Completed [facility] TDAP 2017-02-05 00:00:00 Completed [facility] Vital Signs Vital Name Observation Time Observation Value Comments S ource Systolic blood pressure 2022-12-01 16:22:00 127 mm[Hg] [place] o [facility] Diastolic blood pressure 2022-12-01 16:22:00 81 mm[Hg] [place] [facility] Heart rate 2022-12-01 16:22:00 71 /min [facility] Body temperature 2022-12-01 16:22:00 36.94 Maite [facility] Body weight 2022-12-01 16:22:00 115.758 kg [facility] BMI 2022-12-01 16:22:00 46.68 kg/m2 [facility] Heart rate 2022-11-11 15:42:00 88 /min Unive [facility] Respiratory rate 2022-11-11 15:42:00 22 /min [facility] Oxygen saturation in Arterial blood by Pulse oximetry 2022-11-11 15:42:00 100 /min [facility] Systolic blood pressure 2022-11-11 15:40:00 125 mm[Hg] [facility] Diastolic blood pressure 2022-11-11 15:40:00 62 mm[Hg] [facility] Body temperature 2022-11-11 15:02:00 36.39 Maite [facility] Body weight 2022-11-04 19:00:00 114.76 kg [facility] BMI 2022-11-04 19:00:00 46.27 kg/m2 [facility] Heart rate 2022-11-11 15:42:00 88 /min Unive [facility] Respiratory rate 2022-11-11 15:42:00 22 /min [facility] Oxygen saturation in Arterial blood by Pulse oximetry 2022-11-11 15:42:00 100 /min [facility] Systolic blood pressure 2022-11-11 15:40:00 125 mm[Hg] [facility] Diastolic blood pressure 2022-11-11 15:40:00 62 mm[Hg] [facility] Body temperature 2022-11-11 15:02:00 36.39 Maite [facility] Body weight 2022-11-04 19:00:00 114.76 kg [facility] BMI 2022-11-04 19:00:00 46.27 kg/m2 [facility] Systolic blood pressure 2022-10-27 16:35:00 131 mm[Hg] [facility] Diastolic blood pressure 2022-10-27 16:35:00 83 mm[Hg] [facility] Heart rate 2022-10-27 16:35:00 95 /min Unive [facility] Body temperature 2022-10-27 16:35:00 36.72 Maite [facility] Respiratory rate 2022-10-27 16:35:00 18 /min [facility] Body height 2022-10-27 16:35:00 157.5 cm [facility] Body weight 2022-10-27 16:35:00 114.125 kg [facility] BMI 2022-10-27 16:35:00 46.02 kg/m2 [facility] Procedures Procedure Date / Time Performed Performing Clinician Source POCT TEST 2022-12-01 17:29:00 Diamond Eisenberg [facility] CONSENT FOR CONTRACEPTION 2022-12-01 06:01:00 Doctor Unassigned, Speed [facility] HYSTEROSCOPY 2022-11-11 13:39:00 Diamond Eisenberg [facility] INTRAUTERINE DEVICE REMOVAL 2022-11-11 13:39:00 Diamond Eisenberg [facility] MYOMECTOMY HYSTEROSCOPY 2022-11-11 13:39:00 Diamond Eisenberg [facility] POCT TEST 2022-11-11 12:47:00 Gray Carty [facility] POCT TEST 2022-11-11 12:47:00 Gray Carty [facility] CBC WITH DIFF 2022-11-10 14:21:00 Diamond Eisenberg [facility] ASSIGNMENT OF BENEFITS 2022-11-10 14:12:42 Docto r Unassigned, Speed [facility] DSU PRE-OP 2022-10-27 06:01:00 Doctor Unass igned, Speed [facility] DSU PRE-OP 2022-10-27 06:01:00 Doctor Unass igned, Speed [facility] US PELVIS COMPLETE WITH TRANSVAGINAL 2022-10-23 20:26:43 Diamond Eisenberg [facility] ASSIGNMENT OF BENEFITS 2022-10-13 13:58:12 Docto r Unassigned, Speed [facility] POCT TEST 2022-10-13 00:00:00 Diamond Eisenberg [facility] Encounters Start Date/Time End Date/Time Encounter Type Admission Type Attending [facility] Care Department Encounter ID Source 2023-11-24 09:25:36 2023-11-24 09:25:36 Outpatient [facility] [id number] Geoffrey Henao 2023-11-02 11:30:32 2023-11-02 11:30:32 Outpatient [facility] [id number] Geoffrey Henao 2023-03-09 10:30:00 2023-03-09 10:30:00 Outpatient R EISENBERG DIAMOND [facility] [id number] [facility] 2023-03-06 15:34:16 2023-03-06 15:34:16 Outpatient [facility] [id number] Geoffrey Henao 2023-01-05 00:00:00 2023-01-05 00:00:00 Patient Secure Msg [place] Diamond [facility] 1..840.114 350.1.13.10 4.2.7.2.686 [id number] [facility] 2022-12-01 10:30:00 2022-12-01 10:41:23 Outpatient R EISENBERGDIAMOND [facility] [id number] [facility] 2022-12-01 10:30:00 2022-12-01 10:41:23 Office Visit Claudette Eisenbergen [facility] 1..840.114 350.1.13.10 4.2.7.2.686 [id number] [facility] 2022-12-01 00:00:00 2022-12-01 00:00:00 Orders Only Doctor Unassigned, Speed [facility] .840.114 350.1.13.10 4.2.7.2.686 [id number] [facility] 2022-11-19 00:00:00 2022-11-19 00:00:00 Telephone [facility]Diamond [facility] BUILDING 1..840.114 350.1.13.10 4.2.7.2.686 [id number] [facility] 2022-11-11 07:50:00 2022-11-11 10:10:00 Surgery Diamond Eisenberg [facility] 1.2840.114 350.1.13.10 4.2.7.2.686 [id number] [facility] 2022-11-11 06:48:00 2022-11-11 09:54:00 Hospital Encounter Diamond Eisenberg [facility] 1.20.114 350.1.13.10 4.2.7.2.686 [id number] [facility] 2022-11-11 06:48:00 2022-11-11 09:54:00 Outpatient R ELGIN [facility] DIRECTOR OF RESIDENTIAL SERVICES [id number] [facility] 2022-11-10 08:00:00 2022-11-10 08:15:00 Combo Welder Visit Pob, Adc Lab Main Diamond Eisenberg [facility] PROFESSIO COUNTS INCLUDE 234 BEDS AT THE [facility] BU[facility] 1.84.114 350.1.13.10 4.2.7.2.686 [id number] [facility] 2022-11-10 08:00:00 2022-11-10 08:00:00 Outpatient R EISENBERG [facility] [id number] [facility] 2022-11-10 00:00:00 2022-11-10 00:00:00 Orders Only Doctor Unassigned, Speed [facility] 1.2840.114 350.1.13.10 4.2.7.2.686 [id number] [facility] 2022-10-27 10:30:00 2022-10-27 11:06:03 [id number] 2022-10-27 10:30:00 2022-10-27 11:06:03 Office Visit Diamond Eisenberg [facility] BUILDING 1.2.840.114 350.1.13.10 4.2.7.2.686 [id number] 134 [id number] [facility] 2022-10-23 12:59:24 2022-10-23 23:59:00 Outpatient R DIAMOND EISENBERG [facility] [id number] [facility] 2022-10-23 12:59:24 2022-10-23 23:59:00 Hospital Encounter Diamond Eisenberg [facility] 1.2.840.114 350.1.13.10 4.2.7.2.686 [id number] [facility] 2022-10-13 08:30:00 2022-10-13 09:19:50 Office Visit Diamond Eisenberg [facility] 1.2.840.114 350.1.13.10 4.2.7.2.686 [id number] [facility] 2022-10-13 08:30:00 2022-10-13 09:19:50 Outpatient R DIAMOND EISENBERG [facility] [id number] [facility] 2022-10-13 00:00:00 2022-10-13 00:00:00 Orders Only Doctor Unassigned, Speed [facility] 1.2.840.114 350.1.13.10 4.2.7.2.686 [id number] [facility] 2021-09-09 09:30:00 2021-09-09 09:30:00 Outpatient R DIAMOND EISENBERG [facility] [id number] [facility] 2021-09-09 09:30:00 2021-09-09 09:30:00 Outpatient R DIAMOND EISENBERG [facility] [id number] [facility] Results Test Description Test Time Test Comments Results Result Co mments Source [id number] 17:29:00* Test Item Value Reference Range Interpretation Comme nts POCT PREG (test code = 1605) Negative On board controls acceptable with C Line (test code = 3574) Yes POCT PREG LOT # (test code = 3575) POCT PREG TEST DATE ( test code = 3576) [facility] [id number] 12:47:00* Test Item Value Reference Range Interpretation Comme nts POCT PREG (test code = 1605) Negative On board controls acceptable with C Line (test code = 3574) Yes POCT PREG LOT # (test code = 3575) POCT PREG TEST DATE ( test code = 3576) [facility] [id number] 12:47:00* Test Item Value Reference Range Interpretation Comme nts POCT PREG (test code = 1605) Negative On board controls acceptable with C Line (test code = 3574) Yes POCT PREG LOT # (test code = 3575) POCT PREG TEST DATE ( test code = 3576) [facility] WITH [id number] 14:27:23* Test Item Value Reference Range Interpretation Comme nts WBC (test code = 6690-2) See_Comment [Automated [employer] ge] The system which generated this result transmitted reference range: 4.30 - 11.10 10*3/?L. The reference range was not used to interpret this result as normal/abnormal. RBC (test code = 789-8) See_Comment [Automated [employer]] The system which generated this result transmitted reference range: 3.93 - 5.25 10*6/?L. The reference range was not used to interpret this result as normal/abnormal. HGB (test code = 718-7) 11.5 g/dL 11.6-15.0 L HCT (test code = 4544-3) 36.3 % 35.7-45.2 MCV (test code = 787-2) 81.8 fL 80.6-95.5 MCH (test code = 785-6) 25.9 pg 25.9-32.8 MCHC (test code = 786-4) 31.7 g/dL 31.6-35.1 RDW-SD (test code = 44503-7) 40.1 fL 39.0-49.9 RDW-CV (test code = 788-0) 13.5 % 12.0-15.5 PLT (test code = 777-3) See_Comment [Automated messa ge] The system which generated this result transmitted reference range: 166 - 358 10*3/?L. The reference range was not used to interpret this result as normal/abnormal. MPV (test code = 13855-4) 10.3 fL 9.5-12.9 NRBC/100 WBC (test code = 7050075125) See_Comment [Automated [employer] ssage] The system which generated this result transmitted reference range: 0.0 - 10.0 /100 WBCs. The reference range was not used to interpret this result as normal/abnormal. NRBC x10^3 (test code = 9193861907) See_Comment [Automated messa ge] The system which generated this result transmitted reference range: 10*3/?L. The reference range was not used to interpret this result as normal/abnormal. GRAN MAT (NEUT) % (test code = 770-8) 59.1 % IMM GRAN % (test code = 2121663729) 0.20 % LYMPH % (test code = 736-9) 31.2 % MONO % (test code = 5905-5) 6.1 % EOS % (test code = 713-8) 2.8 % BASO % (test code = 706-2) 0.6 % GRAN MAT x10^3(ANC) (test code = 0722399190) 3.19 10*3/uL 1.88-7.09 IMM GRAN x10^3 (test code = 3650844055) 0.00-0.06 LYMPH x10^3 (test code = 731-0) 1.68 10*3/uL 1.32-3.29 MONO x10^3 (test code = 742-7) 0.33 10*3/uL 0.33-0.92 EOS x10^3 (test code = 711-2) 0.15 10*3/uL 0.03-0.39 BASO x10^3 (test code = 704-7) 0.03 10*3/uL 0.01-0.07 Lab Interpretation (test code = 81921-0) [facility]normal [id number] 15:00:00* Test Item Value Reference Range Interpretation Comme nts POCT PREG (test code = 1605) Negative On board controls acceptable with C Line (test code = 3574) Yes POCT PREG LOT # (test code = 3575) POCT PREG TEST DATE ( test code = 3576) [facility] [id number] 15:00:00* Test Item Value Reference Range Interpretation Comme nts POCT PREG (test code = 1605) Negative On board controls acceptable with C Line (test code = 3574) Yes POCT PREG LOT # (test code = 3575) POCT PREG TEST DATE ( test code = 3576) [facility]
--- NOTE | 2025-04-18 22:31 | RAD REPORT ---
EXAMINATION: Transvaginal OB COMPARISON: None. HISTORY: VAGINAL BLEEDING TECHNIQUE: Real-time ultrasound was performed through the pelvis. A transvaginal scan was performed t o better visualize the intrauterine contents and adnexa. FINDINGS: There is a single living intrauterine . Cardiac activity measured 131 BPM. There is no visible subchorionic hemorrhage. 4.4 x 3.5 cm posteriorly located fibroid suspected. Both ovaries are visualized and appear unremarkable. There is no free fluid in the cul-de-sac. Measurements and Calculations: Eldridge rump length 9 mm, consistent with a sonographic age of 7 weeks, 0 days. IMPRESSION: Single living intrauterine , with a composite sonographic age of 7 weeks, 0 days. 4.4 cm posteriorly located uterine fibroid.
[2025-04-18 22:46] LABS: Specific Gravity 1.017 (1.005-1.030)
[2025-04-18 22:48] LABS: Absolute Eosinophils 0.1 K/uL (0-0.5); Absolute Monocytes 0.4 K/uL (0.1-1.3); Absolute Neutrophil 3.8 K/uL (1.8-8.0); Basophils % 0.4 % (0-1.3); Eosinophils % 2.3 % (0-4.4); Hematocrit 33.2 % (36.0-45.0); Hemoglobin 11.2 g/dL (12.0-15.0); MCH 26.6 pg (27.0-35.0); MCHC 33.6 g/dL (32.0-36.0); MCV 79.1 fL (80-100); MPV 9.2 fL (7.6-11.3); Monocytes % 6.5 % (3.3-12.3); Neutrophils % 59.8 % (41.7-73.7); Nucleated Red Blood Cells % 0.1 % (0-0); Platelets 251 thou/uL (152-406); Red Cell Distribution Width 13.8 % (12.1-15.2)
[2025-04-18 22:59] LABS: Anion Gap 9.2 mEq/L (5.0-15.0); Potassium 3.2 mEq/L (3.5-5.1)
--- NOTE | 2025-04-18 23:06 | ER ---
Nurse's Notes [facility] Name: Elizabeth Severino Age: 39 yrs Sex: Female : 1985 Arrival Date: 04/18/2025 Time: 21:23 Bed 8 Private MD: Diagnosis: Encounter for supervision of normal first , first trimester Presentation: 04/18 21:47 Chief complaint: Patient states: OB appt today had transvaginal and standard US which bl1 showed abnormalities; OB wanting patient to come to ED and get blood work and US to rule out ectopic . Coronavirus screen: At this time, the client does not indicate any symptoms associated with coronavirus-19. Ebola Screen: No symptoms or risks identified at this time. Initial Sepsis Screen: Does the patient meet any 2 criteria? No. Patient's initial sepsis screen is negative. Does the patient have a suspected source of infection? No. Patient's initial sepsis screen is negative. Risk Assessment: Do you want to hurt yourself or someone else? Patient reports no desire to harm self or others. Onset of symptoms was April 18, 2025. 21:47 Method Of Arrival: Ambulatory bl1 21:47 Acuity: ARSALAN 3 bl1 Triage Assessment: 21:55 EENT: No deficits noted. No signs and/or symptoms were reported regarding the NT bl1 system. Neuro: No deficits noted. Level of Consciousness is awake, alert, obeys commands, Oriented to person, place, time, situation. Cardiovascular: No deficits noted. Capillary refill < 3 seconds. Respiratory: No deficits noted. Airway is patent. GI: No deficits noted. Abdomen is non-distended, pt had abnormal US today for early . : No deficits noted. Derm: No deficits noted. Musculoskeletal: No deficits noted. 21:55 General: Appears in no apparent distress. comfortable, Behavior is calm, cooperative. 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 - Infectious Disease History:: Denies. - Social history:: Smoking status: Patient denies any tobacco usage or history of. Screenin:57 [facility] ED Fall Risk Assessment (Adult) History of falling in the last 3 months, bl1 including since admission No falls in past 3 months (0 pts) Confusion or Disorientation No (0 pts) Intoxicated or Sedated No (0 pts) Impaired Gait No (0 pts) Mobility Assist Device Used No (0 pt) Altered Elimination No (0 pt) Score/Fall Risk Level 0 - 2 = Low Risk Oriented to surroundings, Maintained a safe environment, Hourly rounding (assess needs \T\ fall precautionary measures) done. Abuse screen: Denies threats or abuse. Denies injuries from another. Nutritional screening: No deficits noted. Tuberculosis screening: No symptoms or risk factors identified. Never had TB. Possible symptoms: None Risk factors: None. Assessment: 21:56 Reassessment: No changes from previously documented assessment. see triage assessment. bl1 Pain: Denies pain. Vital Signs: 21:47 BP 132 / 64; Pulse 84; Resp 18; Temp 98.5; Pulse Ox 100% on R/A; Weight 86.18 kg; bl1 Height 5 ft. 2 in. ; 22:38 BP 122 / 70; Pulse 65; Resp 16; Pulse Ox 100% on R/A; bl1 23:20 BP 116 / 56; Pulse 69; Resp 18; Pulse Ox 100% on R/A; bl1 21:47 Body Mass Index 34.75 (86.18 kg, 157.48 cm) bl1 ED Course: 21:26 Patient arrived in ED. jj6 21:39 Ileana Stearns PA-C is PHCP. sb4 21:39 Charanjit Murphy MD is Attending Physician. sb4 21:46 Park Alvarez, MARY is Primary Nurse. al5 21:52 Triage completed. bl1 21:56 Patient has correct armband on for positive identification. Bed in low position. Call bl1 light in reach. Side rails up X 1. Provided Education on: plan of care . 21:56 Arm band placed on right wrist. Patient placed in the treatment room, in view of staff al5 members, on pulse oximetry. 22:06 Basic Metabolic Panel Sent. bl1 22:06 CBC with Diff Sent. bl1 22:06 Test, Urine Sent. bl1 22:06 Quantitative Hcg Sent. bl1 22:07 No provider procedures requiring assistance completed. Inserted saline lock: 20 gauge al5 in right antecubital area, using aseptic technique. Blood collected. Flushed with 10 mL NS. 22:24 US Transvaginal Ob In Process Unspecified. EDMS 23:20 IV discontinued, intact, bleeding controlled, No redness/swelling at site. Pressure bl1 dressing applied. Administered Medications: 23:15 Drug: Potassium PO Effervescent Tablet 25 mEq PO once; dissolve in 4 ounces of water or bl1 juice Route: PO; 23:23 Follow up: Response: No adverse reaction; Medication administered at discharge. dd2 Medication: 21:58 VIS not applicable for this client. bl1 Outcome: 23:05 Discharge ordered by . sb4 23:20 Discharged to home ambulatory, bl1 23:20 Condition: stable 23:20 Discharge instructions given to patient, Instructed on discharge instructions, follow up and referral plans. Demonstrated understanding of instructions, follow-up care, 23:21 Patient left the ED. bl1 Signatures: Dispatcher [employer] EDMS Montserrat Hendricks Sophia, PA-C PA-C sb4 Park Alvarez RN RN al5 CAITLIN CRAWFORD RN RN dd2 Cari Cochran RN RN bl1 Corrections: (The following items were deleted from the chart) 22:00 21:55 GI: No deficits noted. Abdomen is non-distended, bl1 bl1
--- NOTE | 2025-04-18 23:06 | EDPHYS ---
Physician Documentation [facility] Name: Elizabeth Severino Age: 39 yrs Sex: Female : 1985 Arrival Date: 04/18/2025 Time: 21:23 Bed 8 Private MD: ED Physician Charanjit Murphy HPI: 04/19 00:10 This 39 yrs old Female presents to ER via Ambulatory with complaints of SENT sb4 BY OB FOR C/O ECTOPIC . 00:12 The patient presents to the emergency department with concern for ectopic. The sb4 estimated gestational age is 7 weeks. course: care: none, Leakage of Fluid: none appreciated, Ultrasound: the patient had an ultrasound, which showed had transvag and transabdominal US today at help center, told abnormal and to go to ED, Risk/complications: advanced maternal age. Previous pregnancies:. The patient has not experienced similar symptoms in the past. The patient has not recently seen a physician. Was told she had an abnormal ultrasound at the help center today and to come to the ED for further workup to rule out an ectopic . Patient has no complaints at this time. Denies any pain, bleeding. 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 - Infectious Disease History:: Denies. - Social history:: Smoking status: Patient denies any tobacco usage or history of. ROS: 04/19 00:12 Constitutional: Negative for fever, chills, and weight loss, sb4 All other systems are negative, Exam: 00:12 Constitutional: This is a well developed, well nourished patient who is awake, alert, sb4 and in no acute distress. Head/Face: Normocephalic, atraumatic. Eyes: Extra-ocular motions intact. Periorbital areas with no swelling, redness, or edema. ENT: Mucous membranes moist. Cardiovascular: Regular rate and rhythm with a normal S1 and S2. Respiratory: No increased work of breathing, no retractions or nasal flaring. Abdomen/GI: Soft, non-tender, no distension. Skin: Warm, dry with normal turgor. Normal color with no rashes, no lesions, and no evidence of cellulitis. MS/ Extremity: Pulses equal, no cyanosis. Neurovascular intact. Full, normal range of motion. Vital Signs: 04/18 21:47 BP 132 / 64; Pulse 84; Resp 18; Temp 98.5; Pulse Ox 100% on R/A; Weight 86.18 kg; bl1 Height 5 ft. 2 in. ; 22:38 BP 122 / 70; Pulse 65; Resp 16; Pulse Ox 100% on R/A; bl1 23:20 BP 116 / 56; Pulse 69; Resp 18; Pulse Ox 100% on R/A; bl1 21:47 Body Mass Index 34.75 (86.18 kg, 157.48 cm) bl1 MDM: 21:39 Medical Screening Exam initiated sb4 04/19 00:12 Differential diagnosis: STD, threatened Ab, ectopic . Data reviewed: vital sb4 signs, nurses notes, lab test result(s), radiologic studies, and as a result, I will discharge patient. Counseling: I had a detailed discussion with the patient and/or guardian regarding the historical points, exam findings, and any diagnostic results supporting the discharge/admit diagnosis, lab results, radiology results, the need for outpatient follow up, for definitive care, an OB/Gyne specialist, to return to the emergency department if symptoms worsen or persist or if there are any questions or concerns that arise at home. 04/18 21:46 Order name: Basic Metabolic Panel; Complete Time: 23:00 sb4 04/18 21:46 Order name: CBC with Diff; Complete Time: 22:53 sb4 04/18 21:46 Order name: Test, Urine; Complete Time: 22:47 sb4 04/18 21:46 Order name: Quantitative Hcg; Complete Time: 23:00 sb4 04/18 21:46 Order name: US Transvaginal Ob; Complete Time: 22:33 sb4 04/18 21:46 Order name: IV Saline Lock; Complete Time: 22:06 sb4 04/18 21:46 Order name: Labs collected and sent; Complete Time: 22:06 sb4 Administered Medications: 04/18 23:15 Drug: Potassium PO Effervescent Tablet 25 mEq PO once; dissolve in 4 ounces of water or bl1 juice Route: PO; 23:23 Follow up: Response: No adverse reaction; Medication administered at discharge. dd2 Disposition: 04/19 00:40 I reviewed the patient's care provided by the Advanced Practice Provider and agree with juventino the diagnosis and treatment plan. Disposition Summary: 04/18/25 23:05 Discharge Ordered Notes: Location: Home sb4 Problem: new sb4 Symptoms: are unchanged sb4 Condition: Stable sb4 Diagnosis - Encounter for supervision of normal first , first trimester sb4 Followup: sb4 - With: Private Physician - When: 1 week - Reason: Further diagnostic work-up, Recheck today's complaints, Re-evaluation by your physician Discharge Instructions: - Discharge Summary Sheet sb4 - First Trimester of , [id number] sb4 - Uterine Fibroids, [id number] sb4 Forms: - Patient Portal Instructions sb4 - Leadership Thank You Letter sb4 Signatures: Dispatcher [employer] Ileana Felix PA-C PA-C sb4 Cari Cochran RN RN bl1 Charanjit Murphy MD MD tw7 CAITLIN CRAWFORD RN dd2
[2025-04-18] MEDS ORDERED: POTASSIUM 25 MEQ EFFERV TAB ONE (23:21)
[2025-04-18 23:43] VITALS: TEMP 98.5; O2SAT 100
[2025-04-18 23:46] VITALS: BP 116/56
== END 2025-04-18 23:21 | disposition home or self-care (01) ==
LOC: ER 21:23
DX: O26.891 Other specified pregnancy related conditions, first trimester (principal); Z3A.01 Less than 8 weeks gestation of pregnancy
CPT/HCPCS: 36415; 76817; 80048; 81025; 84702; 85025; 99284